=== PATIENT | female | born 1955 | race Caucasian/White ===

== ENCOUNTER 2018-09-12 16:19 | Inpatient (IN) | payer MEDICAID, SELFPAY ==
[2018-09-12] VITALS (8 sets, daily range): BP systolic 136–160; BP diastolic 98–104; PULSE 82–101; RESP 17–20; TEMP 36.6–37.1; O2SAT 87–94; BMI 30.8; BMI 37.3
--- NOTE | 2018-09-12 16:25 | EKG12_ITS ---
Test Reason : SYNCOPE Blood Pressure : / mmHG Vent. Rate : 097 BPM Atrial Rate : 097 BPM P-R Int : 120 ms QRS Dur : 090 ms QT Int : 330 ms P-R-T Axes : 064 134 067 degrees QTc Int : 419 ms Poor data quality, interpretation may be adversely affected Sinus rhythm with Premature atrial complexes Right axis deviation Low voltage QRS RSR' or QR pattern in V1 suggests right ventricular conduction delay Abnormal ECG Confirmed by DENA CHAPARRO, VANESSA ([id number]), content editor MANINDER RAMIREZ ([id number]) on 09/14/2018 4:22:44 PM Referred By: ARCHANA Confirmed By:VANESSA FERNANDES MD
--- NOTE | 2018-09-12 16:28 | ED.DCSUM_ITS ---
- ER Visit Summary Date of Service: 09/12/18 Chief Complaint: Fall, hypoxia History of Present Illness: The patient is a 63 F presents to the emergency department by squad after a fall. Patient states that she was outside. She thinks that she is going to get her mail. She tripped in wet grass and fell. She states that she was outside for about 15 minutes. She does not think that she lost consciousness. She did not strike her head. She does admit that she is been mildly short of breath for the past few days. She had scant cough. She denies any fevers or chills. She denies any history of lung disease. The patient does have a history of schizophrenia and is on long-acting injectable Haldol. She denies any hallucinations or delusions. She has never been on oxygen before. On squad arrival, she was 84% on room air. Physical Examination: Vital signs reviewed General: Well-nourished, well-developed Head: Normocephalic, atraumatic Eyes: Pupils equal and reactive, extraocular muscles intact Neck, supple, no lymphadenopathy Heart: Regular rate and rhythm Respiratory: No distress, diminished air movement in all lung estrada Abdomen: Soft, nontender, nondistended, no peritoneal signs Back: Nontender Extremities: Nontender, no edema, no cords Skin: Normal color no rash Neuro: Alert and oriented, no focal or lateralizing deficits Test Results: [] Emergency Department Course and Treatment: The patient presents with hypoxia. Her fall did seem to be mechanical, but the patient has a significant oxygen requirement. Metabolic workup was pursued. Her EKG did not show acute ischemia. Her chest x-ray was unremarkable. The patient continued to require 4 L of supplemental oxygen. She was given steroids and breathing treatments. She had improvement of aeration but continued to have oxygen dependence. At this time, I do feel that she can require admission for COPD exacerbation. She does have an indeterminate troponin, but I do feel that this is more likely from global hypoxia rather than acute coronary syndrome. Patient was discussed with the hospitalist and will be admitted. Treatment Plan: [] Disposition: Admission Impression: 1. COPD exacerbation 2. Hypoxia This note was generated with [employer] software. It may contain incorrect words, spelling, and punctuation that were not noted in review of the chart prior to signing ED Disposition - Plan for ED Patient: Chief Complaint: Fall
--- NOTE | 2018-09-12 16:30 | RAD_ITS ---
STUDY: X-RAY CHEST REASON FOR EXAM: Female, 63 years old. Cough TECHNIQUE: Single AP portable view of the chest. COMPARISON: None. FINDINGS: There are a few scattered areas of minimal interstitial prominence. There is no demonstrated pleural abnormality. There is borderline cardiomegaly. Normal mediastinum and trip. Normal visualized pulmonary arteries. Normal visualized aortic arch and descending thoracic aorta. Normal visualized thoracic spine. Normal visualized ribs, clavicles, and shoulders. There is no demonstrated abnormality of the visualized soft tissue structures of the upper abdomen. RAD/Chest 1 View (Portable) IMPRESSION: No visible focal consolidation. Electronically Signed: Jennifer Merrill MD at 17:14 EST Tel , Service support ,
[2018-09-12] MEDS: Albuterol 2.5 MG/3 ML VIAL.NEB. INHALATION ×2 (16:44→16:45)
[2018-09-12] MEDS: Ipratropium/Albuterol Sulfate 3 ML AMPUL.NEB INHALATION ×2 (16:45→22:10)
[2018-09-12 17:44] LABS: Absolute Lymphocyte Count 1.87 X10^3/ul (0.83-4.51); Absolute Neutrophil Count 13.1 X10^3/uL (2.0-7.7); Basophil# 0.02 X10^3/uL; Basophil% 0.1 % (0-1); Eosinophil# 0.05 X10^3/uL; Eosinophils% 0.3 % (0-5); Hematocrit 48.7 % (37-47); Hemoglobin 15.8 g/dl (12.0-15.0); Lymphocyte # 1.87 X10^3/ul (4.0); Lymphocyte % 11.5 % (19-41); Mean Corp Hgb Conc 32.4 g/gl (32-36); Mean Corpuscular Hgb 31.7 pg (27.0-32.0); Mean Corpuscular Volume 97.8 fL (81-99); Mean Platelet Vol. 9.7 fl (6.2-12.0); Monocyte# 1.16 X10^3/uL; Monocyte% 7.1 % (0-10); Neutrophil # 13.12 X10^3/uL (2.7-7.7); Neutrophil % 80.6 % (47-70); POSITIVE COUNT NO; POSITIVE DIFFERENTIAL NO; POSITIVE MORPHOLOGY NO; Platelet Count 290 K/mm3 (150-450); RBC Distribution Width CV 16.3 % (11.6-14.6); RBC Distribution Width SD 57.8 fl (35.1-43.9); Red Blood Count 4.98 M/mm3 (4.2-5.4); White Blood Count 16.3 K/mm3 (4.4-11.0)
[2018-09-12 18:00] LABS: ALB/GLOB Ratio 0.8 RATIO (0.9-2.4); AST(SGOT) 13 U/L (15-37); Alanine Aminotransfer ALT/SGPT 16 U/L (13-56); Albumin, Serum 3.1 g/dL (3.2-5.0); Alkaline Phosphatase 81 U/L (45-117); Anion Gap 3 (5-15); BUN 13 mg/dL (7-18); BUN/Creat Ratio 15.9 RATIO (10-20); Calcium,Total 8.4 mg/dL (8.5-10.1); Chloride 95 mmol/L (98-107); Creatinine, Serum 0.82 mg/dL (0.55-1.02); EST Glomerular Filtration Rate 75 mL/min (>60); Est Glom Filt Rate - Afr Amer 91 mL/min (>60); Estimated Creatinine Clearance 75.94 ml/min; Glucose 104 mg/dL (74-106); Potassium 3.9 mmol/L (3.5-5.1); Protein, Total 7.1 g/dL (6.4-8.2); Sodium Level 134 mmol/L (136-145)
[2018-09-12] MEDS: MethylPREDNISolone 125 MG/2 ML Vial IV (18:01)
[2018-09-12 18:13] LABS: BNP,B-Type NATRIURETIC PEPTIDE 325.8 pg/mL (0-100)
--- NOTE | 2018-09-12 19:06 | PCM.HP.STD ---
Problem List (1) Schizophrenia Status: Chronic (2) Smoker Status: Chronic (3) COPD (chronic obstructive pulmonary disease) Status: Acute Qualifiers: COPD type: COPD with acute exacerbation Qualified Code(s): J44.1 - Chronic obstructive pulmonary disease with (acute) exacerbation (4) Obesity Status: Chronic History of Present Illness Date of Admission: 09/12/18 Chief Complaint: shortness of breath The patient is a 63 year old female with a significant past medical history of Schizophrenia and COPD who smokes 3PPD for many years presents to the ER with shortness of breath. This has been progressing for the past 3 days but became worse today. She called the squad after a fall at home. She denies loss of consciousness but thinks she slipped on wet grass outside. She denies trauma or head injury. Her schizophrenia is controlled with monthly injections of Haldol. She is not on home oxygen. Her initial pulse oxygen saturation was 84% on room air. She will be admitted for COPD exacerbation Past Medical History Past Medical History (Chronic Problems): Chronic Problems Schizophrenia (Chronic) Smoker (Chronic) Obesity (Chronic) Allergies No Known Allergies Allergy (Verified 09/12/18 18:01) Smoking Status: Current every day smoker - *Family History Maternal History Items: No pertinent history Review of Systems Constitutional: Denies: Chills, Fever, Weight Change HEENT: Denies: Head Aches, Sinus Congestion, Sinus Drainage Cardiovascular: Denies: Chest Pain, Palpitations Respiratory: Reports: Cough, Shortness of breath at rest, Shortness of breath upon exertion, Wheezing. Denies: Sputum production Gastrointestinal: Denies: Abdominal Pain, Nausea, Vomiting Genitourinary: Denies: Dysuria Musculoskeletal: Denies: Joint Pain, Joint Tenderness Skin: Denies: Rash, Wounds Neurological: Denies: Numbness, Tingling, Focal weakness Psychiatric: Denies: Anxiety, Depression, Homicidal Ideations, Suicidal Ideations Hematologic/ Lymphatic: Denies: Easy Bruising, Easy Bleeding VTE Information - Inpt Only VTE Present on Admission: No VTE Mechan Device Prophylaxis: None VTE Pharm Prophylaxis ordered?: Yes Patient Problems: Active and Suspected Problems COPD (chronic obstructive pulmonary disease) (Acute) - Physical Exam General: Alert, Oriented x3, Cooperative HEENT: Atraumatic, Normocephalic Neck: Supple Lungs: Diminished, Short of Breath, Wheezes Cardiovascular: Regular rate, Normal S1, Normal S2, No murmurs Abdomen: Bowel Sounds Present, Soft, Non Tender, Obese Extremities: No edema Skin: No rashes Musculoskeletal: No Tenderness to Palpation of Joints or Extremities Neurological: Neuro grossly intact Psych/Mental Status: Normal Affect, Appropriate Vital Signs Temp Pulse Resp BP Pulse Ox 97.8 F 94 18 160/104 H 93 09/12/18 16:20 09/12/18 16:26 09/12/18 16:26 09/12/18 16:26 09/12/18 16:26 Oxygen Flow Rate (L/min) 4 Oxygen Delivery Method Nasal Cannula Weight: 215 lb Body Mass Index (BMI) 30.8 Laboratory Tests Past 24 Hrs 09/12/18 09/12/18 09/12/18 17:30 17:30 17:30 WBC 16.3 H RBC 4.98 Hgb 15.8 H Hct 48.7 H MCV 97.8 MCH 31.7 MCHC 32.4 RDW 16.3 H RDW Differential 57.8 H Plt Count 290 MPV 9.7 Immature Gran % (Auto) 0.400 Neut % (Auto) 80.6 H Lymph % (Auto) 11.5 L [place] % (Auto) 7.1 Eos % (Auto) 0.3 Baso % (Auto) 0.1 Absolute Neuts (auto) 13.1 H Absolute Lymphs (auto) 1.87 Total Counted Not Reportable Sodium 134 L Potassium 3.9 Chloride 95 L Carbon Dioxide 36.0 H Anion Gap 3 L BUN 13 Creatinine 0.82 Estim Creat Clear Calc 75.94 Est GFR (MDRD) Af Amer 91 Est GFR (MDRD) Non-Af 75 BUN/Creatinine Ratio 15.9 Glucose 104 Calcium 8.4 L Total Bilirubin 0.50 AST 13 L ALT 16 Alkaline Phosphatase 81 Troponin I 0.067 H B-Natriuretic Peptide 325.8 H Total Protein 7.1 Albumin 3.1 L Globulin 4.0 Albumin/Globulin Ratio 0.8 L Assessment/Plan All Active Problems COPD (chronic obstructive pulmonary disease) (Acute) Chronic Problems Schizophrenia (Chronic) Smoker (Chronic) Obesity (Chronic) Plan - admit to PCU - solumedrol 40mg IV q8hrs - levaquin 500mg IV q day - duoneb INH q 4hrs - cycle cardiac markers and cont telemetry due to elevated troponin - LMWH for DVT prophylaxis - nicoderm patch - continue routine home medications Code Visit Inpatient E&M: 16819 Init Hosp L3
[2018-09-12] MEDS: levoFLOXacin IV 500 MG/100 ML BAG 100 MG IV (20:48)
[2018-09-12] MEDS: 0.9% NaCl Peripheral Flush Adult/Peds IV (22:33)
[2018-09-13] VITALS (20 sets, daily range): BP systolic 146–158; BP diastolic 42–105; PULSE 78–189; RESP 16–20; TEMP 36.6–37; O2SAT 92–96
[2018-09-13] MEDS: Ipratropium/Albuterol Sulfate 3 ML AMPUL.NEB INHALATION ×4 (02:30→14:51)
[2018-09-13] MEDS: 0.9% NaCl Peripheral Flush Adult/Peds IV ×4 (05:29→21:42)
[2018-09-13 07:19] LABS: Absolute Lymphocyte Count 0.64 X10^3/ul (0.83-4.51); Absolute Neutrophil Count 14.2 X10^3/uL (2.0-7.7); Basophil# 0.01 X10^3/uL; Basophil% 0.1 % (0-1); Hematocrit 46.9 % (37-47); Hemoglobin 15.2 g/dl (12.0-15.0); Lymphocyte # 0.64 X10^3/ul (4.0); Lymphocyte % 4.2 % (19-41); Mean Corp Hgb Conc 32.4 g/gl (32-36); Mean Corpuscular Hgb 31.5 pg (27.0-32.0); Mean Corpuscular Volume 97.3 fL (81-99); Mean Platelet Vol. 10.5 fl (6.2-12.0); Monocyte# 0.45 X10^3/uL; Monocyte% 2.9 % (0-10); Neutrophil # 14.24 X10^3/uL (2.7-7.7); Neutrophil % 92.5 % (47-70); Platelet Count 268 K/mm3 (150-450); RBC Distribution Width CV 15.9 % (11.6-14.6); RBC Distribution Width SD 55.8 fl (35.1-43.9); Red Blood Count 4.82 M/mm3 (4.2-5.4); White Blood Count 15.4 K/mm3 (4.4-11.0)
[2018-09-13 07:24] LABS: POSITIVE COUNT NO; POSITIVE DIFFERENTIAL NO; POSITIVE MORPHOLOGY NO
[2018-09-13 07:37] LABS: Anion Gap 6 (5-15); BUN 12 mg/dL (7-18); BUN/Creat Ratio 18.9 RATIO (10-20); Calcium,Total 8.5 mg/dL (8.5-10.1); Chloride 99 mmol/L (98-107); Creatinine, Serum 0.64 mg/dL (0.55-1.02); EST Glomerular Filtration Rate 100 mL/min (>60); Est Glom Filt Rate - Afr Amer 121 mL/min (>60); Estimated Creatinine Clearance 71.16 ml/min; Glucose 131 mg/dL (74-106); Potassium 4.1 mmol/L (3.5-5.1); Sodium Level 136 mmol/L (136-145)
[2018-09-13] MEDS: Enoxaparin 40 MG/0.4 ML Syringe SC (08:21)
[2018-09-13] MEDS: Aspirin E.C. 325 MG Tablet PO (08:21)
[2018-09-13] MEDS: levoFLOXacin IV 500 MG/100 ML BAG 100 MG IV (10:24)
--- NOTE | 2018-09-13 14:42 | PN_ITS ---
<Mable Brand - Last Filed: 09/13/18 14:42> Patient Problems: Active and Suspected Problems COPD (chronic obstructive pulmonary disease) (Acute) Subjective: Patient seen and examined. Harsh nonproductive cough. Notes improvement in shortness of breath. No other current complaints. - Physical Exam General: Alert, Oriented x3, Cooperative HEENT: Atraumatic, PERRLA, EOMI, Normocephalic Neck: Supple, No JVD, Negative Carotid Bruits Lungs: Diminished, Rhonchi, Wheezes Cardiovascular: Regular rate, Regular Rhythm, Normal S1, Normal S2, No murmurs Abdomen: Bowel Sounds Present, Soft, Non Tender, Non-Distended, Obese Extremities: No clubbing, No cyanosis, No edema, Capillary Refill Less than 3 Seconds Skin: No rashes, No breakdown Musculoskeletal: No Tenderness to Palpation of Joints or Extremities Neurological: Cranial nerves II-XII grossly intact, Neuro grossly intact Psych/Mental Status: Normal Affect, Appropriate Vital Signs Temp Pulse Resp BP Pulse Ox 98.6 F 87 20 H 149/93 H 96 09/13/18 08:17 09/13/18 10:58 09/13/18 13:59 09/13/18 08:17 09/13/18 08:17 Oxygen Flow Rate (L/min) 3 Oxygen Delivery Method Nasal Cannula Weight: 203 lb 14.841 oz Body Mass Index (BMI) 37.3 Intake and Output for Last 24 Hours 09/11/18 09/12/18 09/13/18 23:59 23:59 23:59 Intake Total 1191 / 1191 Balance 1191 / 1191 Laboratory Tests Past 24 Hrs 09/12/18 09/12/18 09/12/18 17:30 17:30 17:30 WBC 16.3 H RBC 4.98 Hgb 15.8 H Hct 48.7 H MCV 97.8 MCH 31.7 MCHC 32.4 RDW 16.3 H RDW Differential 57.8 H Plt Count 290 MPV 9.7 Immature Gran % (Auto) 0.400 Neut % (Auto) 80.6 H Lymph % (Auto) 11.5 L [place] % (Auto) 7.1 Eos % (Auto) 0.3 Baso % (Auto) 0.1 Absolute Neuts (auto) 13.1 H Absolute Lymphs (auto) 1.87 Total Counted Not Reportable Sodium 134 L Potassium 3.9 Chloride 95 L Carbon Dioxide 36.0 H Anion Gap 3 L BUN 13 Creatinine 0.82 Estim Creat Clear Calc 75.94 Est GFR (MDRD) Af Amer 91 Est GFR (MDRD) Non-Af 75 BUN/Creatinine Ratio 15.9 Glucose 104 Calcium 8.4 L Total Bilirubin 0.50 AST 13 L ALT 16 Alkaline Phosphatase 81 Troponin I 0.067 H B-Natriuretic Peptide 325.8 H Total Protein 7.1 Albumin 3.1 L Globulin 4.0 Albumin/Globulin Ratio 0.8 L 09/12/18 09/13/18 09/13/18 21:22 06:00 06:00 WBC 15.4 H RBC 4.82 Hgb 15.2 H Hct 46.9 MCV 97.3 MCH 31.5 MCHC 32.4 RDW 15.9 H RDW Differential 55.8 H Plt Count 268 MPV 10.5 Immature Gran % (Auto) 0.300 Neut % (Auto) 92.5 H Lymph % (Auto) 4.2 L [place] % (Auto) 2.9 Eos % (Auto) 0.0 Baso % (Auto) 0.1 Absolute Neuts (auto) 14.2 H Absolute Lymphs (auto) 0.64 L Total Counted Not Reportable Sodium 136 Potassium 4.1 Chloride 99 Carbon Dioxide 31.0 Anion Gap 6 BUN 12 Creatinine 0.64 Estim Creat Clear Calc 71.16 Est GFR (MDRD) Af Amer 121 Est GFR (MDRD) Non-Af 100 BUN/Creatinine Ratio 18.9 Glucose 131 H Calcium 8.5 Total Bilirubin AST ALT Alkaline Phosphatase Troponin I 0.044 B-Natriuretic Peptide Total Protein Albumin Globulin Albumin/Globulin Ratio 09/13/18 06:00 WBC RBC Hgb Hct MCV MCH MCHC RDW RDW Differential Plt Count MPV Immature Gran % (Auto) Neut % (Auto) Lymph % (Auto) [place] % (Auto) Eos % (Auto) Baso % (Auto) Absolute Neuts (auto) Absolute Lymphs (auto) Total Counted Sodium Potassium Chloride Carbon Dioxide Anion Gap BUN Creatinine Estim Creat Clear Calc Est GFR (MDRD) Af Amer Est GFR (MDRD) Non-Af BUN/Creatinine Ratio Glucose Calcium Total Bilirubin AST ALT Alkaline Phosphatase Troponin I 0.024 B-Natriuretic Peptide Total Protein Albumin Globulin Albumin/Globulin Ratio Medical Necessity - Tobacco Use Smoking Status: Current every day smoker Assessment/Plan All Active Problems COPD (chronic obstructive pulmonary disease) (Acute) 1. Acute COPD exacerbation with associated acute hypoxia-continue supplemental oxygen to maintain O2 sat above 90%. Continue IV Solu-Medrol. Albuterol and DuoNeb aerosols. Levaquin empirically. Chest x-ray on admission with no focal consolidation. 2. Indeterminate troponin/elevated BNP-patient denies chest pain. Suspect secondary to demand ischemia as a result of #1. Troponins did not trend. EKG without evidence of ST-T changes. BNP 325. No evidence of CHF. Feel this is related to acute respiratory insufficiency. 3. Tobacco dependence-current pack+ per day smoker. Offered nicotine replacement patch, patient declined. 4. Schizophrenia-continue home regimen. 5. Obesity-encouraged diet lifestyle modifications. 6. Hyperlipidemia-continue statin. DVT prophylaxis- Lovenox This patient was seen by REY Collazo under the supervision of Dr. Bauman. <Alex Bauman F - Last Filed: 09/13/18 15:36> - Physical Exam Vital Signs Temp Pulse Resp BP Pulse Ox 98.4 F 86 18 157/84 H 94 09/13/18 15:25 09/13/18 15:25 09/13/18 15:25 09/13/18 15:25 09/13/18 15:25 Oxygen Flow Rate (L/min) 3 Oxygen Delivery Method Nasal Cannula Weight: 203 lb 14.841 oz Body Mass Index (BMI) 37.3 Intake and Output for Last 24 Hours 09/11/18 09/12/18 09/13/18 23:59 23:59 23:59 Intake Total 1191 / 1191 Balance 1191 / 1191 Laboratory Tests Past 24 Hrs 09/12/18 09/12/18 09/12/18 17:30 17:30 17:30 WBC 16.3 H RBC 4.98 Hgb 15.8 H Hct 48.7 H MCV 97.8 MCH 31.7 MCHC 32.4 RDW 16.3 H RDW Differential 57.8 H Plt Count 290 MPV 9.7 Immature Gran % (Auto) 0.400 Neut % (Auto) 80.6 H Lymph % (Auto) 11.5 L [place] % (Auto) 7.1 Eos % (Auto) 0.3 Baso % (Auto) 0.1 Absolute Neuts (auto) 13.1 H Absolute Lymphs (auto) 1.87 Total Counted Not Reportable Sodium 134 L Potassium 3.9 Chloride 95 L Carbon Dioxide 36.0 H Anion Gap 3 L BUN 13 Creatinine 0.82 Estim Creat Clear Calc 75.94 Est GFR (MDRD) Af Amer 91 Est GFR (MDRD) Non-Af 75 BUN/Creatinine Ratio 15.9 Glucose 104 Calcium 8.4 L Total Bilirubin 0.50 AST 13 L ALT 16 Alkaline Phosphatase 81 Troponin I 0.067 H B-Natriuretic Peptide 325.8 H Total Protein 7.1 Albumin 3.1 L Globulin 4.0 Albumin/Globulin Ratio 0.8 L 09/12/18 09/13/18 09/13/18 21:22 06:00 06:00 WBC 15.4 H RBC 4.82 Hgb 15.2 H Hct 46.9 MCV 97.3 MCH 31.5 MCHC 32.4 RDW 15.9 H RDW Differential 55.8 H Plt Count 268 MPV 10.5 Immature Gran % (Auto) 0.300 Neut % (Auto) 92.5 H Lymph % (Auto) 4.2 L [place] % (Auto) 2.9 Eos % (Auto) 0.0 Baso % (Auto) 0.1 Absolute Neuts (auto) 14.2 H Absolute Lymphs (auto) 0.64 L Total Counted Not Reportable Sodium 136 Potassium 4.1 Chloride 99 Carbon Dioxide 31.0 Anion Gap 6 BUN 12 Creatinine 0.64 Estim Creat Clear Calc 71.16 Est GFR (MDRD) Af Amer 121 Est GFR (MDRD) Non-Af 100 BUN/Creatinine Ratio 18.9 Glucose 131 H Calcium 8.5 Total Bilirubin AST ALT Alkaline Phosphatase Troponin I 0.044 B-Natriuretic Peptide Total Protein Albumin Globulin Albumin/Globulin Ratio 09/13/18 06:00 WBC RBC Hgb Hct MCV MCH MCHC RDW RDW Differential Plt Count MPV Immature Gran % (Auto) Neut % (Auto) Lymph % (Auto) [place] % (Auto) Eos % (Auto) Baso % (Auto) Absolute Neuts (auto) Absolute Lymphs (auto) Total Counted Sodium Potassium Chloride Carbon Dioxide Anion Gap BUN Creatinine Estim Creat Clear Calc Est GFR (MDRD) Af Amer Est GFR (MDRD) Non-Af BUN/Creatinine Ratio Glucose Calcium Total Bilirubin AST ALT Alkaline Phosphatase Troponin I 0.024 B-Natriuretic Peptide Total Protein Albumin Globulin Albumin/Globulin Ratio Code Visit Addendum: Dr. Bauman I personally examined the patient and reviewed the chart. I agree with the above. Patient is a 63-year-old female with past medical history of schizophrenia, COPD who smokes 3 packs/day for many years and presented to the ER with shortness of breath. She is felt to be having an acute COPD exacerbation and was therefore started on Solu-Medrol 40 mg IV every 8 as well as Levaquin 500 daily and inhalers. She continues to be short of breath and is currently on 3 L nasal cannula. Inpatient E&M: 23511 Subs Hosp L2
--- NOTE | 2018-09-13 15:19 | CASEMGMT ---
KASSIE CORCORAN INITIAL ASSESSMENT D/C PLAN: Home Face to Face with patient for initial transition planning/care coordination assessment. KASSIE CORCORAN introduced self and role at [facility]. Pt resting in bed, awake/alert and agreeable to assessment. Care providers, pharmacy, and demographics verified. PCP: Elpidio Coughlin Specialists: Denies Preferred Pharmacy: [facility] [place] Insurance: [employer]. Does not have a Conservation Worker. Pt made aware she could ask for Conservation Worker through [employer] and KASSIE CORCORAN offered to make the call to [facility] so she could talk with them. Pt stated, I'll keep that in mind. I don't want to do that today. Prescription Benefit: Yes Living Will/HPOA: Does not have either. Given AD info packet. Pt states that she would like her daughter to make medical decisions for her if she was not able to. Referral made to Pura TANNER. SAB[place]OK: Has a daughter who lives in [place] and a son. Living Arrangements: Lives with her boyfriend, Canelo in a one-story home. 2 steps to enter. Canelo assists with medication mgmnt. Pt does her own personal care/ADL's, meals, and household mgmt tasks. States she and Canelo do finances together. Pt states she receives Disability benefits. Transportation: Pt and Canelo DME: States she thinks she has rails/grab bars in the home and has a hand-held shower. Denies using any other DME. walks independently. Denies DME needs. does not wear home O2 and states she does not have a nebulizer. May need Home Oxygen qualification testing completed prior to discharge. HHC/SNF: has never used HHC services or been to a SNF. States does not have either. Pt wishes to return home, denies needs, and states does not want HHC. Pt states she still smokes about 3 PPD and is not interested in quitting. States she will think about talking to someone but does not wish to today, stating, I like to smoke. Denies drinking ETOH or illicit drug use. CM to follow for any further discharge planning needs that may arise. Stone DORSEY RN, CM
--- NOTE | 2018-09-13 19:10 | EKG12_ITS ---
Test Reason : SVT Blood Pressure : / mmHG Vent. Rate : 089 BPM Atrial Rate : 089 BPM P-R Int : 102 ms QRS Dur : 092 ms QT Int : 304 ms P-R-T Axes : 051 093 036 degrees QTc Int : 369 ms Sinus rhythm with short IN Rightward axis Incomplete right bundle branch block Borderline ECG When compared with ECG of 13-SEP-2018 19:11, MANUAL COMPARISON REQUIRED, DATA IS UNCONFIRMED Confirmed by JORDAN CHAPARRO, TITO ([id number]), editorial specialist MANINDER RAMIREZ ([id number]) on 09/16/2018 2:05:43 PM Referred By: DR VALLEJO Confirmed By:TITO ORTEGA MD
[2018-09-13] MEDS: Adenosine 6 MG/2 ML Syringe IV (19:20)
[2018-09-13] MEDS: Adenosine 6 MG/2 ML Syringe 12 MG IV (19:25)
--- NOTE | 2018-09-13 19:31 | PCM.PN.BLA ---
Progress Note Patient in svt with HR of 180S to 190s. Adenosine first 6mg did not respond. Converted to sinus rhythm with 12mg IVP. cardiology consult.
--- NOTE | 2018-09-13 19:35 | EKG12_ITS ---
Test Reason : SVT Blood Pressure : / mmHG Vent. Rate : 190 BPM Atrial Rate : 182 BPM P-R Int : 000 ms QRS Dur : 080 ms QT Int : 214 ms P-R-T Axes : 000 081 235 degrees QTc Int : 380 ms Supraventricular tachycardia Nonspecific ST and T wave abnormality Abnormal ECG When compared with ECG of 12-SEP-2018 16:41, MANUAL COMPARISON REQUIRED, DATA IS UNCONFIRMED Confirmed by JORDAN CHAPARRO, TITO ([id number]), editor magazine MANINDER RAMIREZ ([id number]) on 09/16/2018 2:06:02 PM Referred By: DR MATHEW Confirmed By:TITO ORTEGA MD
--- NOTE | 2018-09-13 19:44 | NURSING ---
AROUND 1900 PT WENT INTO SVT ON MONITOR, PT WAS UP TO BATHROOM WHEN THIS ALL STARTED, WAS ALSO ASYMPTOMATIC. THIS RN WENT IN ROOM AND ATTEMPTED TO HAVE PT COUGH AND BARE DOWN, THIS WAS UNSUCCESSFUL. AN EKG WAS OBTAINED WHICH CONFIRMED SVT. DR. REYNA WAS PAGED AND CAME TO FLOOR. 6 MG IV ADENOSINE WAS ADMINISTERED WITH NO SUCCESS. 12 MG IV ADENOSINE WAS THEN ADMINISTERED WITH A POSITIVE OUTCOME. HR RETURNED TO 89 AND AN EKG WAS OBTAINED. VSS. CARDIOLOGY CONSULT WAS PLACED FOR SVT.
[2018-09-13] MEDS: Atorvastatin Calcium 10 MG Tablet PO (21:42)
[2018-09-13] MEDS: Nystatin Powder 15gm Bottle 1 APPLIC TOPICAL (21:42)
[2018-09-14] VITALS (16 sets, daily range): BP systolic 141–165; BP diastolic 78–112; PULSE 63–83; RESP 18–22; TEMP 36.3–37.2; O2SAT 94–97
[2018-09-14] MEDS: Ipratropium/Albuterol Sulfate 3 ML AMPUL.NEB INHALATION ×4 (03:32→19:43)
[2018-09-14] MEDS: 0.9% NaCl Peripheral Flush Adult/Peds IV ×4 (07:08→21:00)
[2018-09-14] MEDS: Acetaminophen 325 MG Tablet 650 MG PO (07:08)
[2018-09-14 07:11] LABS: Hematocrit 46.8 % (37-47); Hemoglobin 15.7 g/dl (12.0-15.0); Mean Corp Hgb Conc 33.5 g/gl (32-36); Mean Corpuscular Volume 95.5 fL (81-99); Mean Platelet Vol. 10.9 fl (6.2-12.0); Platelet Count 290 K/mm3 (150-450); RBC Distribution Width CV 15.8 % (11.6-14.6); RBC Distribution Width SD 54.2 fl (35.1-43.9); White Blood Count 15.9 K/mm3 (4.4-11.0)
--- NOTE | 2018-09-14 07:13 | ECHOD_ITS ---
Reason For Study: Arrhythmia Procedure This was a 2D Doppler, Color Flow transthoracic echocardiogram. Did not use Definity due to increased PAP. The study was technically difficult. Exam performed portable in patient room. Left Ventricle Normal LV size. Left ventricular systolic function is normal. The estimated ejection fraction is 60 %. Diastolic function is indeterminate. No regional wall motion abnormalities noted. Right Ventricle Normal RV size. Normal systolic function. Atria Normal left atrium. Normal right atrium. No doppler evidence for ASD. Mitral Valve There is no mitral annular calcification. Normal mitral valve. Mild (1+) mitral valve insufficiency. Tricuspid Valve Normal tricuspid valve. Mild to moderate (1-2+) tricuspid valve insufficiency. Right ventricular systolic pressure estimated to be 58 mmHg. Aortic Valve Trisinus/trileaflet aortic valve. Mild focal aortic valve thickening. Pulmonic Valve The pulmonic valve is not well visualized. Mild (1+) pulmonic valve insufficiency. Great Vessels Normal sized aortic root. Pericardium/Pleural Trivial pericardial effusion. There are no echocardiographic indications of cardiac tamponade. MMode/2D Measurements & Calculations LVIDd: 5.1 cm IVSd: 1.2 cm Ao root diam: 3.2 cm LVIDs: 3.6 cm LVPWd: 0.96 cm RVDd: 4.2 cm FS: 28.9 % LAV(MOD-bp): 37.9 ml LA A4 area: 13.8 cm2 LA dimension(2D): 4.3 cm LAV(MOD-bp) Indexed: 19.7 ml/m2 LAV(MOD-sp2): 45.6 ml LAV(MOD-sp4): 29.9 ml RA A4 area: 18.4 cm2 Doppler Measurements & Calculations MV E max curtis: 111.7 cm/sec Lat Peak E' Curtis: 7.2 cm/sec Med Peak E' Curtis: 7.7 cm/sec MV A max curtis: 92.4 cm/sec E/E' lat: 15.5 E/E' med: 14.4 MV E/A: 1.2 Ao V2 max: 168.2 cm/sec LV V1 max: 113.8 cm/sec PA V2 max: 86.8 cm/sec Ao max P.3 mmHg LV V1 max P.2 mmHg Ao V2 mean: 114.4 cm/sec Ao mean P.8 mmHg Ao V2 VTI: 34.2 cm TR max curtis: 325.9 cm/sec TR max P.5 mmHg Interpretation Summary The study was technically difficult. Left ventricular systolic function is normal. The estimated ejection fraction is 60 %. Mild (1+) mitral valve insufficiency. Mild to moderate (1-2+) tricuspid valve insufficiency. Mild focal aortic valve thickening. Mild (1+) pulmonic valve insufficiency. Trivial pericardial effusion. There are no echocardiographic indications of cardiac tamponade. Right ventricular systolic pressure estimated to be 58 mmHg c/w pulmonary hypertension. Diastolic function is indeterminate. Ordering Physician: Tank Tolbert Referring Physician: Elpidio Coughlin Performed By: Sandhya Guadalupe, LAZARO, RVT
[2018-09-14 07:16] LABS: Scan Indicated on CBC? Y/N NO
[2018-09-14 07:17] LABS: Anion Gap 6 (5-15); BUN 15 mg/dL (7-18); Calcium,Total 8.8 mg/dL (8.5-10.1); Chloride 98 mmol/L (98-107); Creatinine, Serum 0.84 mg/dL (0.55-1.02); EST Glomerular Filtration Rate 73 mL/min (>60); Est Glom Filt Rate - Afr Amer 89 mL/min (>60); Estimated Creatinine Clearance 54.22 ml/min; Glucose 135 mg/dL (74-106); Potassium 4.1 mmol/L (3.5-5.1); Sodium Level 134 mmol/L (136-145)
--- NOTE | 2018-09-14 08:52 | CON.PCM_ITS ---
Problem List (1) SVT (supraventricular tachycardia) Status: Acute (2) Abnormal cardiac enzyme level Status: Acute (3) COPD (chronic obstructive pulmonary disease) Status: Acute Qualifiers: COPD type: COPD with acute exacerbation Qualified Code(s): J44.1 - Chronic obstructive pulmonary disease with (acute) exacerbation (4) Schizophrenia Status: Chronic (5) Obesity Status: Chronic Reason for Consult Date of Consultation: 09/14/18 History of Present Illness: The patient is a 63 year old white female with a past medical history which is apparently included COPD and schizophrenia who is being evaluated for COPD exacerbation and is subsequently been referred for further evaluation of PSVT requiring medical management with IV adenosine. The patient does not recall any cardiovascular history nor undergoing cardiovascular evaluation in the past. She states that she has been complaining of shortness of breath and a nonproductive cough. She is being evaluated for an underlying COPD exacerbation. She has been treated medically including IV corticosteroids. During her initial evaluation she did have an indeterminate troponin I level which decreased. She had no acute ECG changes reported. According to the medical records it was felt this was secondary to her COPD exacerbation. She did not have additional cardiovascular evaluation. Yesterday evening she noted palpitations. She was found to have an underlying supraventricular tachycardia. She was treated with IV adenosine 6 mg x1 with no response. She was treated with IV adenosine 12 mg x1 with subsequent conversion to sinus rhythm. She did have a follow-up ECG. At that time she was noted to be back in sinus rhythm with a borderline short SD interval with a rightward axis and an incomplete right bundle branch block pattern. Compared to her baseline ECG there appeared to be similar type changes. She has denied chest discomfort. She complains of her chronic shortness of breath and dyspnea. She complains of her chronic cough. She is denied any ongoing near syncope or syncope. She states she has been a 3 pack/day smoker for many years. She states she stopped smoking 1 week ago. [] Past Medical History Allergies/Adverse Reactions: Allergies No Known Allergies Allergy (Verified 09/12/18 20:23) Home Medications: Ambulatory Orders Medication Instructions Recorded Atorvastatin Calcium [Lipitor] 10 mg PO DAILY 09/12/18 Haloperidol 2 mg PO BID 09/12/18 Lorazepam [Ativan] 0.5 mg PO BID 09/12/18 Mometasone/Formoterol [Dulera 100 2 puff INHALATION BID 09/12/18 Mcg/5 Mcg Inhaler] Perphenazine 8 mg PO BID 09/12/18 Past Medical History (Chronic Problems): Chronic Problems Schizophrenia (Chronic) Smoker (Chronic) Obesity (Chronic) - *Family History Maternal History Items: No pertinent history Smoking Status: Current every day smoker Alcohol: None Drugs: None Review of Systems - Review of Systems General: Reports: Fever Cardiovascular: Reports: Shortness of Breath, Palpitations. Denies: Chest Discomfort, Orthopnea, PND, Peripheral Edema, Lightheadedness, Dizziness, Near Syncope, Syncope Respiratory: Reports: Non Productive Cough, Shortness of Breath. Denies: Cough, Sputum Production, Hemoptysis Gastrointestinal: Denies: Hematemesis, Hematochezia, Melena Genitourinary: Denies: Dysuria, Hematuria Skin: Denies: Rash Subjectve: This is a 63-year-old white female who appears to be resting comfortably at the moment in no acute distress. Objective: Vital Signs Temp Pulse Resp BP Pulse Ox 97.8 F 83 20 H 141/78 H 95 09/14/18 03:25 09/14/18 07:27 09/14/18 07:27 09/14/18 03:25 09/14/18 07:27 Oxygen Flow Rate (L/min) 2 Oxygen Delivery Method Nasal Cannula Weight: 203 lb 14.841 oz Body Mass Index (BMI) 37.3 Intake and Output for Last 24 Hours 09/12/18 09/13/18 09/14/18 23:59 23:59 23:59 Intake Total 1890 / 1890 240 / 240 Balance 1890 240 / 240 General: Awake, Alert, Oriented x 3, Cooperative, No Acute Distress HEENT: Atraumatic, Normocephalic, PERRL, EOMI, Sclera Non Icteric Oral: Moist Mucosa Neck: Supple, Good ROM, No JVD Lungs: Rhonchi Cardiovascular: Regular Rhythm, Normal S1, Normal S2 Vascular: No Carotid Bruits Abdomen: Bowel Sounds Present, Soft, Non Tender, Obese Extremities: No Cyanosis, No Clubbing, No edema 09/14/18 06:35: WBC 15.9 H, RBC 4.90, Hgb 15.7 H, Hct 46.8, MCV 95.5, MCH 32.0, MCHC 33.5, RDW 15.8 H, RDW Differential 54.2 H, Plt Count 290, MPV 10.9 09/14/18 06:35: Sodium 134 L, Potassium 4.1, Chloride 98, Carbon Dioxide 30.0, Anion Gap 6, BUN 15, Creatinine 0.84, Est GFR (MDRD) Af Amer 89, Est GFR (MDRD) Non-Af 73, BUN/Creatinine Ratio 18.0, Glucose 135 H, Calcium 8.8 Rhythm: Sinus rhythm EKG: As noted above ECHO: Pending CXR: Preliminary evaluation: No acute cardiopulmonary disease process: Please see official report Assessment/Plan 1. Supraventricular tachycardia The patient has demonstrated evidence of an underlying paroxysmal supraventricular tachycardia. Based upon the findings and her response to IV adenosine therapy it appears this is related to an underlying reentry mechanism tachycardia. This may be brought out by her underlying COPD exacerbation, etc. It is unclear whether she has had episodes of this in the past that have been undiagnosed. At the present time she will continue to be monitored. She will undergo further evaluation of her cardiac anatomy with a transthoracic echocardiogram. In the interim she will be placed on medical management with beta-aarti therapy. Hopefully this will not interfere with her underlying COPD process. Over time she may need to be considered for EP consultation for possible EPS/RFA. 2. Abnormal cardiac enzymes The patient does have a history of indeterminate troponin I levels. Again this may be secondary to her underlying COPD process and supply demand mismatch. However she has not been evaluated from a cardiovascular status for any other cardiac issues. In light of her SVT she will have at minimum an echocardiogram performed to evaluate her left ventricular wall motion and systolic function. She may eventually need, as her pulmonary process improves, further evaluation either noninvasively or invasively of her coronary anatomy and physiology. In the meantime she will continue medical management such as aspirin and beta- aarti therapy and other medications as needed. 3. COPD The patient will continue evaluation care for COPD exacerbation by internal medicine. 4. Schizophrenia The patient states she has been diagnosed with schizophrenia. She does not recall who has cared for or how she has been treated. 5. Obesity The patient has been counseled on the importance of dietary therapy, activity, etc. to try and bring her weight under better control. Comment: The above was discussed with the patient. This note was generated using a voice recognition system and there may be i ncorrect words, spelling or punctuation that were not noted when reviewing the office note prior to saving.
[2018-09-14 09:26] LABS: Cholesterol 144 mg/dL (200); High Density Lipoprotein 35 mg/dL; Triglycerides 135 mg/dL; Very Low Density Lipoprotein 27 mg/dL (5-40)
--- NOTE | 2018-09-14 09:29 | CASEMGMT ---
SW spoke with patient about advance directives. SW asked her if she would like to go over the documents and complete them and she did not. SW explained SW will leave the documents with her and if she changes her mind to let SW know. SW asked patient if she is active with [facility]. She said she is not. SW asked who prescribes her medications. She said her regular doctor prescribes her meds and then her Psychiatrist prescribes her mental health meds. SW asked if she was involved with any other services in the community and she said she is not. She said she is managing well at home. SW asked if she has any kids. She said she has a daughter who lives in [place]. She also has a son who lives with her and her significant other. Patient denied any further needs. Pura ANGUIANO MSW
[2018-09-14] MEDS: levoFLOXacin IV 500 MG/100 ML BAG 100 MG IV (09:32)
[2018-09-14] MEDS: Nystatin Powder 15gm Bottle 1 APPLIC TOPICAL ×2 (09:33→20:59)
[2018-09-14] MEDS: Metoprolol Tartrate 25 MG Tablet PO ×2 (09:33→20:59)
[2018-09-14] MEDS: Enoxaparin 40 MG/0.4 ML Syringe SC (09:36)
[2018-09-14] MEDS: Aspirin E.C. 325 MG Tablet PO (09:36)
--- NOTE | 2018-09-14 10:05 | CASEMGMT ---
Addendum entered by Wilder Balderas 09/14/18 14:49: Discussion with pt again about retail area manager through [facility]. Explained the benefits of having a retail area manager and how they can assist pt with transportation and doctor appts. Pt declines at this time, stating, No, I don't think I want to do that today. Pt informed that if she decides she would like to have a Second Shift Supervisor in the future, that she should contact [facility] to let them know. Original Note: KASSIE CORCORAN NOTE: To room to talk with pt. Discussed [facility] services with pt and explained their services. Pt agreeable with [facility] services. Pt states she has no preference of [facility] agency. Call placed to [facility] @ [phone]. Spoke with Aiyana. She stated they do have Social Work Services and do service the [place] area. She states they would need 48 hrs to get prior auth from [facility]. Awaiting call back from [facility] for acceptance. Stone DORSEY RN, CM
--- NOTE | 2018-09-14 12:34 | PCM.PROGNOTE ---
<Mable Brand - Last Filed: 09/14/18 12:38> Patient Problems: Active and Suspected Problems COPD (chronic obstructive pulmonary disease) (Acute) SVT (supraventricular tachycardia) (Acute) Abnormal cardiac enzyme level (Acute) Subjective: Patient seen and examined. Shortness of breath improved. Continues to have wet cough. Patient noted to have paroxysmal SVT overnight. Patient notes she was asymptomatic. - Physical Exam General: Alert, Oriented x3, Cooperative HEENT: Atraumatic, PERRLA, EOMI, Normocephalic Neck: Supple, No JVD, Negative Carotid Bruits Lungs: Diminished, Rhonchi, Wheezes Cardiovascular: Regular rate, Regular Rhythm, Normal S1, Normal S2, No murmurs Abdomen: Bowel Sounds Present, Soft, Non Tender, Non-Distended Extremities: No clubbing, No cyanosis, No edema, Capillary Refill Less than 3 Seconds Skin: No rashes, No breakdown Musculoskeletal: No Tenderness to Palpation of Joints or Extremities Neurological: Cranial nerves II-XII grossly intact, Neuro grossly intact Psych/Mental Status: Normal Affect, Appropriate Vital Signs Temp Pulse Resp BP Pulse Ox 98.8 F 66 20 H 165/104 H 94 09/14/18 09:25 09/14/18 11:14 09/14/18 09:25 09/14/18 09:25 09/14/18 09:25 Oxygen Flow Rate (L/min) 2 Oxygen Delivery Method Nasal Cannula Weight: 203 lb 14.841 oz Body Mass Index (BMI) 37.3 Intake and Output for Last 24 Hours 09/12/18 09/13/18 09/14/18 23:59 23:59 23:59 Intake Total 189 / 189 1016 / 1016 Balance 189 / 189 1016 / 1016 Laboratory Tests Past 24 Hrs 09/14/18 09/14/18 09/14/18 06:35 06:35 06:35 WBC 15.9 H RBC 4.90 Hgb 15.7 H Hct 46.8 MCV 95.5 MCH 32.0 MCHC 33.5 RDW 15.8 H RDW Differential 54.2 H Plt Count 290 MPV 10.9 Sodium 134 L Potassium 4.1 Chloride 98 Carbon Dioxide 30.0 Anion Gap 6 BUN 15 Creatinine 0.84 Estim Creat Clear Calc 54.22 Est GFR (MDRD) Af Amer 89 Est GFR (MDRD) Non-Af 73 BUN/Creatinine Ratio 18.0 Glucose 135 H Calcium 8.8 Triglycerides 135 Cholesterol 144 LDL Cholesterol 82 VLDL Cholesterol 27 HDL Cholesterol 35 L Medical Necessity - Tobacco Use Smoking Status: Current every day smoker Assessment/Plan All Active Problems COPD (chronic obstructive pulmonary disease) (Acute) SVT (supraventricular tachycardia) (Acute) Abnormal cardiac enzyme level (Acute) 1. Acute COPD exacerbation with associated acute hypoxia-continue supplemental oxygen to maintain O2 sat above 90%. Continue IV Solu-Medrol. Albuterol and DuoNeb aerosols. Levaquin empirically. Chest x-ray on admission with no focal consolidation. 2. Indeterminate troponin/elevated BNP-patient denies chest pain. Suspect secondary to demand ischemia as a result of #1. Troponins did not trend. EKG without evidence of ST-T changes. BNP 325. No evidence of CHF. Feel this is related to acute respiratory insufficiency. Echocardiogram pending. Cardiology following. Possible further cardiac evaluation with improvement in COPD exacerbation. 3. Paroxysmal SVT-IV adenosine x2. Cardiology consulted. Echocardiogram pending. 4. Tobacco dependence-current pack+ per day smoker. Offered nicotine replacement patch, patient declined. 5. Schizophrenia-continue home regimen. 6. Obesity-encouraged diet lifestyle modifications. 7. Hyperlipidemia-continue statin. DVT prophylaxis- Lovenox This patient was seen by REY Collazo under the supervision of Dr. Bauman. <Alex Bauman F - Last Filed: 09/14/18 16:12> - Physical Exam Vital Signs Temp Pulse Resp BP Pulse Ox 98.9 F 68 20 H 148/112 H 94 09/14/18 15:25 09/14/18 15:25 09/14/18 15:25 09/14/18 15:25 09/14/18 15:25 Oxygen Flow Rate (L/min) 2 Oxygen Delivery Method Nasal Cannula Weight: 203 lb 14.841 oz Body Mass Index (BMI) 37.3 Intake and Output for Last 24 Hours 09/12/18 09/13/18 09/14/18 23:59 23:59 23:59 Intake Total 1890 / 189 1016 / 1016 Balance 1890 1016 / 1016 Laboratory Tests Past 24 Hrs 09/14/18 09/14/18 09/14/18 06:35 06:35 06:35 WBC 15.9 H RBC 4.90 Hgb 15.7 H Hct 46.8 MCV 95.5 MCH 32.0 MCHC 33.5 RDW 15.8 H RDW Differential 54.2 H Plt Count 290 MPV 10.9 Sodium 134 L Potassium 4.1 Chloride 98 Carbon Dioxide 30.0 Anion Gap 6 BUN 15 Creatinine 0.84 Estim Creat Clear Calc 54.22 Est GFR (MDRD) Af Amer 89 Est GFR (MDRD) Non-Af 73 BUN/Creatinine Ratio 18.0 Glucose 135 H Calcium 8.8 Triglycerides 135 Cholesterol 144 LDL Cholesterol 82 VLDL Cholesterol 27 HDL Cholesterol 35 L Code Visit Addendum: Dr. Bauman I personally examined the patient and reviewed the chart. I agree with the above. Patient is a 63-year-old female with past medical history of schizophrenia, COPD who smokes 3 packs/day for many years and presented to the ER with shortness of breath. She is felt to be having an acute COPD exacerbation and was therefore started on Solu-Medrol 40 mg IV every 8 as well as Levaquin 500 daily and inhalers. She continues to be short of breath and is currently on 3 L nasal cannula. Overnight she went into SVT with heart rates in the 180s-190s, and was given adenosine required 12 mg for it to break. Cardiology was consulted for further evaluation. Inpatient E&M: 66379 Subs Hosp L2
--- NOTE | 2018-09-14 13:15 | CASEMGMT ---
KASSIE CORCORAN NOTE: Referral info faxed to [facility] @ [phone]. Call placed to [facility] and spoke with Aiyana. She confirmed the referral info was received and they will start the process for prior auth. Stone KIMN KASSIE CM
[2018-09-14] MEDS: LORazepam 0.5 MG Tablet PO (20:59)
[2018-09-14] MEDS: Atorvastatin Calcium 10 MG Tablet PO (20:59)
[2018-09-15] VITALS (22 sets, daily range): BP systolic 115–163; BP diastolic 64–101; PULSE 62–81; RESP 16–20; TEMP 36.6–37.1; O2SAT 82–94
[2018-09-15] MEDS: Ipratropium/Albuterol Sulfate 3 ML AMPUL.NEB INHALATION ×5 (00:10→22:50)
[2018-09-15] MEDS: 0.9% NaCl Peripheral Flush Adult/Peds IV ×3 (05:23→21:13)
[2018-09-15] MEDS: Nystatin Powder 15gm Bottle 1 APPLIC TOPICAL ×2 (09:24→21:12)
[2018-09-15] MEDS: Enoxaparin 40 MG/0.4 ML Syringe SC (09:24)
[2018-09-15] MEDS: Metoprolol Tartrate 25 MG Tablet PO ×2 (09:24→21:12)
[2018-09-15] MEDS: levoFLOXacin IV 500 MG/100 ML BAG 100 MG IV (09:24)
[2018-09-15] MEDS: Aspirin E.C. 325 MG Tablet PO (09:24)
--- NOTE | 2018-09-15 09:49 | CASEMGMT ---
Addendum entered by Wilder Balderas 09/15/18 12:06: Pt states if she requires O2 on discharge, that she has no preference of DME company. Pt also states to KASSIE CORCORAN that she plans to stop smoking, stating, ever since I found out I have COPD, I do not want to smoke any more. Pt declines offer of any medication or resources to help stop smoking. Advised, once she returns home, if she has difficulty with stopping smoking, to contact her PCP to discuss options with him. Pt voiced understanding. Original Note: KASSIE CORCORAN NOTE: Call placed to [facility] to inquire of status of prior auth from [facility]. Spoke with Aiyana @ [facility]. She states it is still currently being reviewed and no prior auth obtained as of yet. She states she will call KASSIE CORCORAN by 1130 today with an update. Stone DORSEY RN, CM
--- NOTE | 2018-09-15 14:03 | PCM.PN.CARD ---
Subjectve: At the present time the patient appears to be without symptoms of acute chest discomfort. She believes her breathing is somewhat improved. Objective: Vital Signs Temp Pulse Resp BP Pulse Ox 98.0 F 62 18 135/75 H 94 09/15/18 09:23 09/15/18 11:12 09/15/18 09:23 09/15/18 09:23 09/15/18 11:41 Oxygen Flow Rate (L/min) [ 2 AMBULATION with Oxygen] Oxygen Flow Rate (L/min) 2 Oxygen Delivery Method Room Air Weight: 203 lb 14.841 oz Body Mass Index (BMI) 37.3 Intake and Output for Last 24 Hours 09/13/18 09/14/18 09/15/18 23:59 23:59 23:59 Intake Total 1891 / 1891 3456 / 3456 942 / 942 Balance 189 / 1891 3456 / 3456 942 / 942 General: Awake, Alert, Cooperative, No Acute Distress, Obese HEENT: Atraumatic, Normocephalic, PERRL Neck: Supple, Good ROM, No JVD Lungs: - - Menaced breath sounds Cardiovascular: Regular Rhythm, Normal S1, Normal S2 Abdomen: Bowel Sounds Present, Soft, Non Tender Extremities: No edema Rhythm: Sinus rhythm Medical Necessity - Tobacco Use Smoking Status: Current every day smoker Assessment/Plan 1. Supraventricular tachycardia The patient has demonstrated evidence of an underlying paroxysmal supraventricular tachycardia. Based upon the findings and her response to IV adenosine therapy it appears this is related to an underlying reentry mechanism tachycardia. This may be brought out by her underlying COPD exacerbation, etc. It is unclear whether she has had episodes of this in the past that have been undiagnosed. At the present time she will continue to be monitored. She has been placed on beta-aarti therapy. Over time she may need to be considered for EP consultation for possible EPS/RFA. 2. Abnormal cardiac enzymes The patient does have a history of indeterminate troponin I levels. Again this may be secondary to her underlying COPD process and supply demand mismatch. However she has not been evaluated from a cardiovascular status for any other cardiac issues. Her echocardiogram was reviewed. Her overall LV wall motion and systolic function appear to be preserved. At the present time she will undergo further evaluation. This will include at minimum a pharmacologic stress nuclear imaging study. If this is unremarkable then she may be considered for continued medical management and follow-up. If there are concerns then she may need to be considered for further evaluation with diagnostic cardiac catheterization. This was discussed with the patient and she was agreeable to this approach. 3. COPD The patient will continue evaluation care for COPD exacerbation by internal medicine. 4. Schizophrenia The patient states she has been diagnosed with schizophrenia. She does not recall who has cared for or how she has been treated. 5. Obesity The patient has been counseled on the importance of dietary therapy, activity, etc. to try and bring her weight under better control. Comment: The above was discussed with the patient and the [facility] hospitalist team. This note was generated using a voice recognition system and there may be incorrect words, spelling or punctuation that were not noted when reviewing the office note prior to saving.
--- NOTE | 2018-09-15 14:54 | PCM.PROGNOTE ---
<Nakul Nelson - Last Filed: 09/15/18 14:54> Patient Problems: Active and Suspected Problems COPD (chronic obstructive pulmonary disease) (Acute) SVT (supraventricular tachycardia) (Acute) Abnormal cardiac enzyme level (Acute) Subjective: Resting comfortably in chair bedside with no complaints. No chest pain, no shortness of breath. She did desaturate when ambulating down the byrd to 82% and will need oxygen going forward. She still smokes about 3 packs/day and states she plans to quit at discharge. She does not have home oxygen currently. No fevers or chills. Nonproductive cough. - Physical Exam General: Alert, Oriented x3, Cooperative HEENT: Atraumatic, PERRLA, EOMI, Normocephalic Neck: Supple, No JVD, Negative Carotid Bruits Lungs: Diminished Cardiovascular: Regular rate, No murmurs Abdomen: Bowel Sounds Present, Soft, Non Tender Extremities: No edema, Capillary Refill Less than 3 Seconds Skin: No rashes, No breakdown Musculoskeletal: No Tenderness to Palpation of Joints or Extremities Neurological: Cranial nerves II-XII grossly intact Psych/Mental Status: Flat Affect, - - Upper extremity psychomotor agitation, Alert and oriented to time, place, person, mood and affect Vital Signs Temp Pulse Resp BP Pulse Ox 98.0 F 62 18 135/75 H 94 09/15/18 09:23 09/15/18 11:12 09/15/18 09:23 09/15/18 09:23 09/15/18 11:41 Oxygen Flow Rate (L/min) [ 2 AMBULATION with Oxygen] Oxygen Flow Rate (L/min) 2 Oxygen Delivery Method Room Air Weight: 203 lb 14.841 oz Body Mass Index (BMI) 37.3 Intake and Output for Last 24 Hours 09/13/18 09/14/18 09/15/18 23:59 23:59 23:59 Intake Total 1891 / 1891 3456 / 3456 942 / 942 Balance 1891 / 1891 3456 / 3456 942 / 942 Medical Necessity - Tobacco Use Smoking Status: Current every day smoker Assessment/Plan All Active Problems COPD (chronic obstructive pulmonary disease) (Acute) SVT (supraventricular tachycardia) (Acute) Abnormal cardiac enzyme level (Acute) 1. Acute COPD exacerbation with acute hypoxia-currently requiring oxygen with ambulation. Continue duo nebs, Solu-Medrol. Change Levaquin to Doxy. Initially presented with leukocytosis. CXR on presentation without consolidation. Patient will need home oxygen with ambulation. 2. Paroxysmal [id number] started per cardiology, which adenosine was given twice during the stay. Echo shows EF of 60%, 1-2+ TVI, moderate pulmonary hypertension with RVSP of 58 mmHg. Trivial pericardial effusion, 1+ PVI, 1+ MVI. 3. Troponin elevation x1-cardiology following. Stress test tomorrow. 4. Schizophrenia-notable psychomotor agitation. Restart perphenazine. Patient no longer takes Haldol p.o. Stating reason that it oral Haldol is discontinued. 5. HLD - statin 6. Nicotine abuse - 3 ppd smoker. DVT ppx: lovenox DC planning: pending stress results tomorrow. Needs home oxygen. This patient was seen by Nakul Nelson PA-C under the supervision of Doctor Merna. <Alex Bauman F - Last Filed: 09/15/18 16:50> - Physical Exam Vital Signs Temp Pulse Resp BP Pulse Ox 98.8 F 76 18 126/64 H 92 09/15/18 15:20 09/15/18 15:20 09/15/18 15:20 09/15/18 15:20 09/15/18 15:20 Oxygen Flow Rate (L/min) [ 2 AMBULATION with Oxygen] Oxygen Flow Rate (L/min) 2 Oxygen Delivery Method Nasal Cannula Weight: 203 lb 14.841 oz Body Mass Index (BMI) 37.3 Intake and Output for Last 24 Hours 09/13/18 09/14/18 09/15/18 23:59 23:59 23:59 Intake Total 1891 / 1891 3456 / 3456 942 / 942 Balance 1891 / 1891 3456 / 3456 942 / 942 Code Visit Addendum: Dr. Bauman I personally examined the patient and reviewed the chart. I agree with the above. 63-year-old female presenting with a COPD exacerbation. During her hospitalization she was found to be in SVT requiring up to 12 mg of adenosine for reversal. Cardiology was consulted and recommended beginning beta-aarti therapy. She did have elevated cardiac enzymes and therefore had an echocardiogram which demonstrated overall normal LV wall motion and function however they recommended undergoing a a stress test in the morning. Inpatient E&M: 64447 Subs Hosp L2
--- NOTE | 2018-09-15 15:00 | PN_ITS ---
<Nakul Nelson - Last Filed: 09/15/18 14:54> Patient Problems: Active and Suspected Problems COPD (chronic obstructive pulmonary disease) (Acute) SVT (supraventricular tachycardia) (Acute) Abnormal cardiac enzyme level (Acute) Subjective: Resting comfortably in chair bedside with no complaints. No chest pain, no shor tness of breath. She did desaturate when ambulating down the byrd to 82% and will need oxygen going forward. She still smokes about 3 packs/day and states she plans to quit at discharge. She does not have home oxygen currently. No fevers or chills. Nonproductive cough. - Physical Exam General: Alert, Oriented x3, Cooperative HEENT: Atraumatic, PERRLA, EOMI, Normocephalic Neck: Supple, No JVD, Negative Carotid Bruits Lungs: Diminished Cardiovascular: Regular rate, No murmurs Abdomen: Bowel Sounds Present, Soft, Non Tender Extremities: No edema, Capillary Refill Less than 3 Seconds Skin: No rashes, No breakdown Musculoskeletal: No Tenderness to Palpation of Joints or Extremities Neurological: Cranial nerves II-XII grossly intact Psych/Mental Status: Flat Affect, - - Upper extremity psychomotor agitation, Alert and oriented to time, place, person, mood and affect Vital Signs Temp Pulse Resp BP Pulse Ox 98.0 F 62 18 135/75 H 94 09/15/18 09:23 09/15/18 11:12 09/15/18 09:23 09/15/18 09:23 09/15/18 11:41 Oxygen Flow Rate (L/min) [ 2 AMBULATION with Oxygen] Oxygen Flow Rate (L/min) 2 Oxygen Delivery Method Room Air Weight: 203 lb 14.841 oz Body Mass Index (BMI) 37.3 Intake and Output for Last 24 Hours 09/13/18 09/14/18 09/15/18 23:59 23:59 23:59 Intake Total 1891 / 1891 3456 / 3456 942 / 942 Balance 1891 / 1891 3456 / 3456 942 / 942 Medical Necessity - Tobacco Use Smoking Status: Current every day smoker Assessment/Plan All Active Problems COPD (chronic obstructive pulmonary disease) (Acute) SVT (supraventricular tachycardia) (Acute) Abnormal cardiac enzyme level (Acute) 1. Acute COPD exacerbation with acute hypoxia-currently requiring oxygen with a mbulation. Continue duo nebs, Solu-Medrol. Change Levaquin to Doxy. Initially presented with leukocytosis. CXR on presentation without consolidation. Patient will need home oxygen with ambulation. 2. Paroxysmal [id number] started per cardiology, which adenosine was given twice during the stay. Echo shows EF of 60%, 1-2+ TVI, moderate pulmonary hypertension with RVSP of 58 mmHg. Trivial pericardial effusion, 1+ PVI, 1+ MVI. 3. Troponin elevation x1-cardiology following. Stress test tomorrow. 4. Schizophrenia-notable psychomotor agitation. Restart perphenazine. Patient no longer takes Haldol p.o. Stating reason that it oral Haldol is discontinued. 5. HLD - statin 6. Nicotine abuse - 3 ppd smoker. DVT ppx: lovenox DC planning: pending stress results tomorrow. Needs home oxygen. This patient was seen by Nakul Nelson PA-C under the supervision of Doctor Merna. <Alex Bauman F - Last Filed: 09/15/18 16:50> - Physical Exam Vital Signs Temp Pulse Resp BP Pulse Ox 98.8 F 76 18 126/64 H 92 09/15/18 15:20 09/15/18 15:20 09/15/18 15:20 09/15/18 15:20 09/15/18 15:20 Oxygen Flow Rate (L/min) [ 2 AMBULATION with Oxygen] Oxygen Flow Rate (L/min) 2 Oxygen Delivery Method Nasal Cannula Weight: 203 lb 14.841 oz Body Mass Index (BMI) 37.3 Intake and Output for Last 24 Hours 09/13/18 09/14/18 09/15/18 23:59 23:59 23:59 Intake Total 1891 / 1891 3456 / 3456 942 / 942 Balance 1891 / 1891 3456 / 3456 942 / 942 Code Visit Addendum: Dr. Bauman I personally examined the patient and reviewed the chart. I agree with the above. 63-year-old female presenting with a COPD exacerbation. During her hospitalization she was found to be in SVT requiring up to 12 mg of adenosine for reversal. Cardiology was consulted and recommended beginning beta-aarti therapy. She did have elevated cardiac enzymes and therefore had an echocardiogram which demonstrated overall normal LV wall motion and function however they recommended undergoing a a stress test in the morning. Inpatient E&M: 16304 Subs Hosp L2
[2018-09-15] MEDS: LORazepam 0.5 MG Tablet PO (15:42)
[2018-09-15] MEDS: Atorvastatin Calcium 10 MG Tablet PO (21:12)
[2018-09-15] MEDS: Doxycycline 100 MG CAPSULE PO (21:12)
[2018-09-15] MEDS: Haloperidol 1 MG Tablet 2 MG PO (22:38)
[2018-09-16] VITALS (12 sets, daily range): BP systolic 103–195; BP diastolic 53–93; PULSE 63–78; RESP 16–18; TEMP 36.6–37.1; O2SAT 84–96
--- NOTE | 2018-09-16 05:55 | EKG12_ITS ---
Test Reason : AM EKG Blood Pressure : / mmHG Vent. Rate : 065 BPM Atrial Rate : 065 BPM P-R Int : 126 ms QRS Dur : 094 ms QT Int : 406 ms P-R-T Axes : 066 058 014 degrees QTc Int : 422 ms Normal sinus rhythm Possible Left atrial enlargement Incomplete right bundle branch block Nonspecific T wave abnormality Abnormal ECG Confirmed by DENA CHAPARRO, VANESSA ([id number]), art editor JAYLA CABEZAS ([id number]) on 09/20/2018 3:47:22 PM Referred By: RAMANA Confirmed By:VANESSA FERNANDES MD
[2018-09-16 06:02] LABS: Absolute Lymphocyte Count 0.76 X10^3/ul (0.83-4.51); Absolute Neutrophil Count 10.6 X10^3/uL (2.0-7.7); Basophil# 0.01 X10^3/uL; Basophil% 0.1 % (0-1); Hematocrit 46.6 % (37-47); Hemoglobin 15.5 g/dl (12.0-15.0); Lymphocyte # 0.76 X10^3/ul (4.0); Mean Corp Hgb Conc 33.3 g/gl (32-36); Mean Corpuscular Hgb 30.9 pg (27.0-32.0); Mean Platelet Vol. 10.4 fl (6.2-12.0); Monocyte# 1.21 X10^3/uL; Monocyte% 9.6 % (0-10); Neutrophil # 10.56 X10^3/uL (2.7-7.7); Neutrophil % 83.9 % (47-70); Platelet Count 257 K/mm3 (150-450); RBC Distribution Width CV 15.4 % (11.6-14.6); RBC Distribution Width SD 51.1 fl (35.1-43.9); Red Blood Count 5.01 M/mm3 (4.2-5.4); White Blood Count 12.6 K/mm3 (4.4-11.0)
[2018-09-16] MEDS: 0.9% NaCl Peripheral Flush Adult/Peds IV (06:06)
[2018-09-16 06:10] LABS: POSITIVE COUNT NO; POSITIVE DIFFERENTIAL NO; POSITIVE MORPHOLOGY NO
[2018-09-16 06:19] LABS: International Normalized Ratio 1.1; Prothrombin Time (Protime)PT. 14.1 SECONDS (11.7-14.9)
[2018-09-16 06:20] LABS: Partial Thromboplast Time 27.9 Seconds (24.1-36.2)
[2018-09-16 06:24] LABS: Anion Gap 8 (5-15); BUN 20 mg/dL (7-18); BUN/Creat Ratio 26.1 RATIO (10-20); Calcium,Total 8.3 mg/dL (8.5-10.1); Chloride 100 mmol/L (98-107); Creatinine, Serum 0.76 mg/dL (0.55-1.02); EST Glomerular Filtration Rate 81 mL/min (>60); Est Glom Filt Rate - Afr Amer 98 mL/min (>60); Estimated Creatinine Clearance 59.92 ml/min; Glucose 153 mg/dL (74-106); Potassium 3.8 mmol/L (3.5-5.1); Sodium Level 136 mmol/L (136-145)
[2018-09-16] MEDS: Ipratropium/Albuterol Sulfate 3 ML AMPUL.NEB INHALATION ×3 (06:41→15:07)
[2018-09-16] MEDS: Aspirin E.C. 325 MG Tablet PO (09:22)
[2018-09-16] MEDS: Metoprolol Tartrate 25 MG Tablet PO (09:36)
--- NOTE | 2018-09-16 09:37 | NURSING ---
Dr. Tolbert called rehan instructed to give lopressor
--- NOTE | 2018-09-16 11:31 | STRESSREP ---
Stress Test Report Date: 05/16/2018 Procedure: Pharmacologic stress nuclear imaging study Indications: Shortness of breath/dyspnea; abnormal cardiac enzymes; SVT Consent: Per the patient Procedure: The patient underwent pharmacologic (Regadenoson) evaluation with a peak heart rate of 82 beats per minute (52 predicted maximal heart rate) and a peak blood pressure of 152/94 mmHg. The baseline ECG demonstrated normal sinus rhythm [place]: Nonspecific T wave abnormality. The peak pharmacologic ECG demonstrated no obvious ECG changes. There were no cardiac dysrhythmias pretest, during pharmacologic infusion, or recovery. There was no complaint of chest discomfort during pharmacologic infusion or recovery. The examination was discontinued secondary to completion of protocol. Impression: 1. Pharmacologic (Regadenoson) evaluation 2. Peak pharmacologic ECG with continued nonspecific T wave abnormality with no obvious ECG changes. 3. There were no cardiac dysrhythmias pretest, during pharmacologic infusion, or recovery. 4. Nuclear images pending Myocardial perfusion imaging study: Technique: The patient was injected with 14.5 millicuries of technetium 99m Cardiolite and subsequently rest SPECT Cardiolite nuclear imaging was obtained in the horizontal long, vertical long, and short axis views. The patient underwent pharmacologic (Regadenoson) evaluation with a peak heart rate of 82 beats per minute (52 % percent predicted maximal heart rate) and a peak blood pressure of 154/94 mmHg. The patient was injected with 44.8 millicuries of technetium 99m Cardiolite and subsequently stress SPECT Cardiolite nuclear imaging was obtained in the horizontal long, vertical long, and short axis views. A gated Cardiolite study at peak stress was obtained. Interpretation: Rest and stress SPECT Cardiolite nuclear imaging status post realignment, normalization, and attenuation correction demonstrates extracardiac/gastrointestinal tracer uptake and otherwise relative uniform tracer uptake and myocardial perfusion appearing within normal limits. There is end systolic thickening and brightening. The gated Cardiolite study demonstrates myocardial thickening and inward wall motion. The reported LVEF is 61 %. Impression: 1. Rest and stress SPECT Cardiolite nuclear imaging demonstrate relative uniform tracer uptake and myocardial perfusion appearing within normal limits. 2. The gated Cardiolite study reports an LVEF of 61 %. This note was generated with Gamgeeation software. It may contain incorrect words, spelling, and punctuation that were not noted in checking the note before signing.
--- NOTE | 2018-09-16 11:45 | DCINST_ITS ---
- Discharge Diagnoses Current Active Problems: Current Active and Chronic Problems Schizophrenia (Chronic) Smoker (Chronic) COPD (chronic obstructive pulmonary disease) (Acute) Obesity (Chronic) SVT (supraventricular tachycardia) (Acute) Abnormal cardiac enzyme level (Acute) You will use the following diet at home:: Cardiac Your food should be the consistency of: Regular Your liquids should be the consistency of: Regular/Thin Discharge Activity: Return to Normal Activity Allergies/Adverse Reactions: Allergies No Known Allergies Allergy (Verified 09/12/18 20:23) Medications to take at Discharge Atorvastatin Calcium [Lipitor] 10 mg PO DAILY 09/12/18 Lorazepam [Ativan] 0.5 mg PO BID 09/12/18 Mometasone/Formoterol [Dulera 100 Mcg/5 Mcg Inhaler] 2 puff INHALATION BID 09/12/18 Perphenazine 8 mg PO BID 09/12/18 Aspirin E.C. [Ecotrin] 325 mg PO DAILY@0800 tablet 09/16/18 Doxycycline 100 mg PO BID #1 capsule 09/16/18 Metoprolol Tartrate [Lopressor (beta aarti)] 25 mg PO BID #60 tablet 09/16/18 Nystatin Powder [Mycostatin Powder] 1 applic TOPICAL BID bottle 09/16/18 Prednisone 10 mg PO UD #30 tablet 09/16/18 The following prescriptions were given: Doxycycline 100 mg PO BID #1 capsule Metoprolol Tartrate [Lopressor (beta aarti)] 25 mg PO BID #60 tablet Prednisone 10 mg PO UD #30 tablet Primary Care Physician: Elpidio Coughlin [Primary Care Provider] - Please follow up with your Primary Care Physician in: 1-2 weeks Test Results: Test results from this visit will be discussed in further detail at your follow- up appointment, if applicable. Please Follow Up With: Tank Tolbert MD When: 2 weeks Proposed Discharge Date: 09/16/18
[2018-09-16] MEDS: Doxycycline 100 MG CAPSULE PO (12:05)
[2018-09-16] MEDS: Nystatin Powder 15gm Bottle 1 APPLIC TOPICAL (12:11)
--- NOTE | 2018-09-16 12:12 | CASEMGMT ---
KASSIE CORCORAN NOTE: Call placed to Aiyana @ [facility] to check on status of Insurance approval. Still awaiting insurance acceptance. Stone DORSEY RN CM
--- NOTE | 2018-09-16 14:02 | PCM.DC.SUM ---
<Nakul Nelson - Last Filed: 09/16/18 14:02> Discharge Date and Diagnosis - Problem List Patient Problems: Active and Suspected Problems COPD (chronic obstructive pulmonary disease) (Acute) SVT (supraventricular tachycardia) (Acute) Abnormal cardiac enzyme level (Acute) Date of Admission: 09/12/18 Date of Discharge: 09/16/18 - Primary Discharge Diagnosis Active and Suspected Problems Acute COPD exacerbation (chronic obstructive pulmonary disease) (Acute) pSVT (supraventricular tachycardia) (Acute) Elevated troponin pulmonary HTN Schizophrenia HLD Nicotine abuse - Secondary Discharge Diagnosis Chronic Problems Schizophrenia (Chronic) Smoker (Chronic) Obesity (Chronic) Hospital Course and Treatment Imaging Results: 09/16/18 05:55 Nuclear Stress Test - Chemical [NM] AM (NON MEDS) Impression: 1. Rest and stress SPECT Cardiolite nuclear imaging demonstrate relative uniform tracer uptake and myocardial perfusion appearing within normal limits. 2. The gated Cardiolite study reports an LVEF of 61 %. RAD/Chest 1 View (Portable) IMPRESSION: No visible focal consolidation. Echo: Interpretation Summary The study was technically difficult. Left ventricular systolic function is normal. The estimated ejection fraction is 60 %. Mild (1+) mitral valve insufficiency. Mild to moderate (1-2+) tricuspid valve insufficiency. Mild focal aortic valve thickening. Mild (1+) pulmonic valve insufficiency. Trivial pericardial effusion. There are no echocardiographic indications of cardiac tamponade. Right ventricular systolic pressure estimated to be 58 mmHg c/w pulmonary hypertension. Diastolic function is indeterminate. Consults: Cardiology - [facility] Operations: None Procedures: 2-D Echocardiogram, Stress test Summary of Care Provided: Hospital course: The patient is a 63 year old F with pmhx of COPD, nicotine abuse - smokes 3 ppd, schizophrnia, obesity, who presented to the ER with c/o worsening SOB x 3 days who came to the ER by squad after falling at home. She was found to have pulse ox of 84% and had an indeterminate troponin. She was placed on PCU on teelmetry. She was given steroids, antibiotics, and breathing treatments. Enzymes were cycled and returned to normal. She had pSVT while here and received adenosine twice. Cardiology was consulted. Once her breathing improved she underwent a stress test which was negative. She was counselled on smoking cessation. She was placed on a beta aarti for pSVT. Echo was obtained with results as above. She was discharged home on a prednisone taper. She will follow up with her PCP in 1-2 weeks and Cardiology in 2 weeks. She desaturated with ambulation and will require oxygen for use at home with activity. This was arranged for her. This patient was seen by Nakul Nelson PA-C under the supervision of Doctor Merna. [] Patient Problems: Active and Suspected Problems COPD (chronic obstructive pulmonary disease) (Acute) SVT (supraventricular tachycardia) (Acute) Abnormal cardiac enzyme level (Acute) - Physical Exam Vital Signs Temp Pulse Resp BP Pulse Ox 98.8 F 63 18 154/83 H 91 09/16/18 12:02 09/16/18 12:02 09/16/18 12:02 09/16/18 12:02 09/16/18 12:30 Oxygen Flow Rate (L/min) [ 2 AMBULATION with Oxygen] Oxygen Flow Rate (L/min) 2 Oxygen Delivery Method Nasal Cannula Weight: 203 lb 14.841 oz Body Mass Index (BMI) 37.3 Intake and Output for Last 24 Hours 09/14/18 09/15/18 09/16/18 23:59 23:59 23:59 Intake Total 3456 / 3456 1742 / 1742 740 / 740 Balance 3456 / 3456 1742 / 1742 740 / 740 Laboratory Tests Past 24 Hrs 09/16/18 09/16/18 09/16/18 05:40 05:40 05:40 WBC 12.6 H RBC 5.01 Hgb 15.5 H Hct 46.6 MCV 93.0 MCH 30.9 MCHC 33.3 RDW 15.4 H RDW Differential 51.1 H Plt Count 257 MPV 10.4 Immature Gran % (Auto) 0.400 Neut % (Auto) 83.9 H Lymph % (Auto) 6.0 L Hamblen % (Auto) 9.6 Eos % (Auto) 0.0 Baso % (Auto) 0.1 Absolute Neuts (auto) 10.6 H Absolute Lymphs (auto) 0.76 L Total Counted Not Reportable PT 14.1 INR 1.1 APTT 27.9 Sodium 136 Potassium 3.8 Chloride 100 Carbon Dioxide 28.0 Anion Gap 8 BUN 20 H Creatinine 0.76 Estim Creat Clear Calc 59.92 Est GFR (MDRD) Af Amer 98 Est GFR (MDRD) Non-Af 81 BUN/Creatinine Ratio 26.1 H Glucose 153 H Calcium 8.3 L Discharge Diet: Low fat/ Low Cholesterol, 2000 mg Sodium Diet Discharge Activity: Return to Normal Activity Home Medications: Medications to take at Discharge Atorvastatin Calcium [Lipitor] 10 mg PO DAILY 09/12/18 Lorazepam [Ativan] 0.5 mg PO BID 09/12/18 Mometasone/Formoterol [Dulera 100 Mcg/5 Mcg Inhaler] 2 puff INHALATION BID 09/12/18 Perphenazine 8 mg PO BID 09/12/18 Albuterol Inhaler [Ventolin Hfa] 1 puff INHALATION Q6H PRN PRN #1 inhaler 09/16/18 Aspirin E.C. [Ecotrin] 325 mg PO DAILY@0800 tablet 09/16/18 Doxycycline 100 mg PO BID #1 capsule 09/16/18 Metoprolol Tartrate [Lopressor (beta aarti)] 25 mg PO BID #60 tablet 09/16/18 Nystatin Powder [Mycostatin Powder] 1 applic TOPICAL BID bottle 09/16/18 Prednisone 10 mg PO UD #30 tablet 09/16/18 Following Prescrptions Were Given to Patient: Albuterol Inhaler [Ventolin Hfa] 1 puff INHALATION Q6H PRN PRN #1 inhaler PRN Reason: Sob &/Or Wheezing Doxycycline 100 mg PO BID #1 capsule Metoprolol Tartrate [Lopressor (beta aarti)] 25 mg PO BID #60 tablet Prednisone 10 mg PO UD #30 tablet Primary Care Physician: Elpidio Coughlin [Primary Care Provider] - Please follow up with your Primary Care Physician in: 1-2 weeks Please Follow Up With: Tank Tolbert MD When: 2 weeks Disposition: Home Minutes spent on discharge:: 35 Patient Condition:: Stable Medical Necessity - Tobacco Use Smoking Status: Current every day smoker Meaningful Use Info Meaningful Use Diagnoses (Choose all that apply): None applicable <Alex Bauman - Last Filed: 09/16/18 14:28> Discharge Date and Diagnosis - Primary Discharge Diagnosis Active and Suspected Problems COPD (chronic obstructive pulmonary disease) (Acute) SVT (supraventricular tachycardia) (Acute) Abnormal cardiac enzyme level (Acute) - Secondary Discharge Diagnosis Chronic Problems Schizophrenia (Chronic) Smoker (Chronic) Obesity (Chronic) Hospital Course and Treatment Imaging Results: 09/16/18 05:55 Nuclear Stress Test - Chemical [NM] AM (NON MEDS) Summary of Care Provided: The patient is a 63 year old F [] - Physical Exam Vital Signs Temp Pulse Resp BP Pulse Ox 98.8 F 63 18 154/83 H 91 09/16/18 12:02 09/16/18 12:02 09/16/18 12:02 09/16/18 12:02 09/16/18 12:30 Oxygen Flow Rate (L/min) [ 2 AMBULATION with Oxygen] Oxygen Flow Rate (L/min) 2 Oxygen Delivery Method Nasal Cannula Weight: 203 lb 14.841 oz Body Mass Index (BMI) 37.3 Intake and Output for Last 24 Hours 09/14/18 09/15/18 09/16/18 23:59 23:59 23:59 Intake Total 3456 / 3456 1742 / 1742 1260 / 1260 Balance 3456 / 3456 1742 / 1742 1260 / 1260 Laboratory Tests Past 24 Hrs 09/16/18 09/16/18 09/16/18 05:40 05:40 05:40 WBC 12.6 H RBC 5.01 Hgb 15.5 H Hct 46.6 MCV 93.0 MCH 30.9 MCHC 33.3 RDW 15.4 H RDW Differential 51.1 H Plt Count 257 MPV 10.4 Immature Gran % (Auto) 0.400 Neut % (Auto) 83.9 H Lymph % (Auto) 6.0 L Hamblen % (Auto) 9.6 Eos % (Auto) 0.0 Baso % (Auto) 0.1 Absolute Neuts (auto) 10.6 H Absolute Lymphs (auto) 0.76 L Total Counted Not Reportable PT 14.1 INR 1.1 APTT 27.9 Sodium 136 Potassium 3.8 Chloride 100 Carbon Dioxide 28.0 Anion Gap 8 BUN 20 H Creatinine 0.76 Estim Creat Clear Calc 59.92 Est GFR (MDRD) Af Amer 98 Est GFR (MDRD) Non-Af 81 BUN/Creatinine Ratio 26.1 H Glucose 153 H Calcium 8.3 L Code Visit Addendum: Dr. Bauman I personally examined the patient and reviewed the chart. I agree with the above. 63-year-old female presenting with a COPD exacerbation. During her hospitalization she was found to be in SVT requiring up to 12 mg of adenosine for reversal. Cardiology was consulted and recommended beginning beta-aarti therapy. She did have elevated cardiac enzymes and therefore had an echocardiogram which demonstrated overall normal LV wall motion and function however they recommended undergoing a a stress test in the morning which was read as negative. Her blood pressure was temporarily elevated this morning however that was because her beta-aarti has been held when it was restarted her blood pressure returned down to her baseline of 130-150. Because of her COPD exacerbation she was discharged on albuterol inhaler, doxycycline, prednisone. She was ambulate in the hallway and did desaturate and therefore she was also sent home on oxygen with follow-up to her PCP and cardiology. Inpatient E&M: [id number] Disch Hosp
--- NOTE | 2018-09-16 14:20 | CASEMGMT ---
KASSIE CORCORAN NOTE: Home O2 qualification testing completed. See findings. notified and [place] obtained[place] [facility] [place] to [employer] and they confirmed they received the script and are aware pt is discharging today. Stated portable O2 tank will be delivered to pt's room today. Jaimie FERNANDO, made aware. KASSIE CORCORAN to room to talk with pt. She was made aware she is to call [employer] upon discharge to make arrangements for them to deliver O2 concentrator when she arrives home. Pt voiced understanding. Phone number provided. Discussed importance of not smoking or allowing anyone else to smoke around the oxygen and explained to pt how very dangerous it would be if this would happen. Pt voiced understanding and stated she is not going to smoke anymore. Stone DORSEY RN CM
--- NOTE | 2018-09-16 15:00 | CASEMGMT ---
KASSIE CORCORAN NOTE: Call received from [facility]. Insurance Approval received and they are able to take pt. Discharge Instructions and d/c summary faxed to [facility] @ [phone]. They state they also need Start of Care order faxed to them. Form received from [facility]. Dr Bauman signed and form faxed back to [facility]. Stone DORSEY RN CM
--- OUTSIDE RECORDS SUMMARY | 2018-10-25 16:25 | XMS RPT_ITS ---
:1955 Author Organization [facility] Support Name Relationship Address Phone MAURICE CARREON Unavailable [address] [place] [address] ULISES LICONA Unavailable [address] + [place] [address] UE Unavailable Unavailable Unavailable MAURICE CARREON Unavailable [address] [place] [address] ULISES LICONA Unavailable [address] + [place] [address] UE Unavailable Unavailable Unavailable MAURICE CARREON Unavailable [address] [place] [address] ULISES LICONA Unavailable [address] + [place] [address] UE Unavailable Unavailable Unavailable MAURICE CARREON Unavailable [address] [place] [address] ULISES LICONA Unavailable [address] + [place] [address] UE Unavailable Unavailable Unavailable MAURICE CARREON Unavailable [address] [place] [address] ULISES LICONA Unavailable [address] + [place] [address] UE Unavailable Unavailable Unavailable MAURICE CARREON Unavailable [address] [facility] [place] [address] ULISES LICONA Unavailable [address] + [place] [address] UE Unavailable Unavailable Unavailable MAURICE CARREON Unavailable [address] [place] [address] ULISES LICONA Unavailable [address] + [place] [address] UE Unavailable Unavailable Unavailable MAURICE CARREON Unavailable [address] [place] [address] ULISES LICONA Unavailable [address] + [place] [address] UE Unavailable Unavailable Unavailable MAURICE CARREON Unavailable [facility] [address] [place] [address] MONAE ULISES Unavailable [address] + [place] [address] UE Unavailable Unavailable Unavailable Care Team Providers Name Role Phone Shady Lux Attending Unavailable Jeffery, Tank Referring Unavailable Moodispaw, Tank Attending Unavailable Alex Bauman Referring Unavailable [facility] Gil, Tank Admitting Unavailable Alex Bauman Attending Unavailable MoodisTank [employer] Unavailable Gil, Tank Admitting Unavailable Gil, Tank Attending Unavailable [facility] Unavailable Gil, Tank Consulting Unavailable Gil, Tank Admitting Unavailable [facility] [place] [facility] Alex Bauman Consulting Unavailable Alex Bauman Attending Unavailable Gil, Tank Admitting Unavailable [facility] Unavailable Moodispaok, Tank Consulting Unavailable Alex Bauman Attending Unavailable Alex Bauman Consulting Unavailable Jeffery, Tank Admitting Unavailable Moodispaok, Tank Attending Unavailable [facility] [place] [facility] Moodisroxanne, Tank Consulting Unavailable Alex Bauman Consulting Unavailable Gil, Tank Admitting Unavailable [facility] [place] [facility]available Moodispaok, Tank Consulting Unavailable Alex Bauman Attending Unavailable Alex Bauman Consulting Unavailable Gil, Tank Admitting Unavailable [facility] [place] [facility]available Moodisroxanne, Tank Consulting Unavailable Alex Bauman Attending Unavailable Alex Bauman Consulting Unavailable PROBLEMS PROBLEMS DATE TYPE CONDITION / CODE ATTENDING STATUS SOURCE 10/03/2018 Unknown R94.31 - Abnormal Shady Lux Active [facility] electrocardiogram Community [ECG] [EKG] / Hospital R94.31(ICD-10) Repository PROCEDURES PROCEDURES No Procedure Records FoundRESULTS RESULTS 12 LEAD ELECTROCARDIOGRAM Observed: 09/20/2018 Status: F Source: [place] 3:47 PM [facility] REPOSITORY [facility] Cardiovascular Services [address] [place] [address] 12 Lead EKG 09/16/18 0548 MR#: [id number] Acct: [id number] Name: YAEL SAVAGE Rep #: [id number] : 1955 63 From: Tank Fernandes MD Attending Dr: Alex Bauman MD Status: DIS IN Ordering Dr: Alex Bauman MD Date: 09/16/18 Location: [facility] Sex: F C Admitted: 09/12/18 Test Reason : AM EKG Blood Pressure : / mmHG Vent. Rate : 065 BPM Atrial Rate : 065 BPM P-R Int : 126 ms QRS Dur : 094 ms QT Int : 406 ms P-R-T Axes : 066 058 014 degrees QTc Int : 422 ms Normal sinus rhythm Possible Left atrial enlargement Incomplete right bundle branch block Nonspecific T wave abnormality Abnormal ECG Confirmed by DENA CHAPARRO, TANK ([id number]), field map editor JAYLA CABEZAS ([id number]) on 09/20/2018 3:47:22 PM Referred By: MERNA Confirmed By:TANK FERNANDES MD 09/20/18 1547 Date Tank Fernandes MD CC: Elpidio Coughlin; Elpidio Coughlin DO; Alex Bauman MD Signed DISCHARGE SUMMARY Observed: 09/16/2018 Status: F Source: [place] 2:29 PM [facility] REPOSITORY [facility] Medical Records Department [address] [place] [address] Discharge Summary 09/16/18 1402 MR#: [id number] Acct: [id number] Name: YAEL SAVAGE Rep #: [id number] : 1955 63 From: Nakul GALLAGHER PCP: Elpidio Coughlin Status: ADM IN Y Location: [place] [address]-1 <Nakul Nelson - Last Filed: 09/16/18 14:02> Discharge Date and Diagnosis - Problem List Patient Problems: Active and Suspected Problems COPD (chronic obstructive pulmonary disease) (Acute) SVT (supraventricular tachycardia) (Acute) Abnormal cardiac enzyme level (Acute) Date of Admission: 09/12/18 Date of Discharge: 09/16/18 - Primary Discharge Diagnosis Active and Suspected Problems Acute COPD exacerbation (chronic obstructive pulmonary disease) (Acute) pSVT (supraventricular tachycardia) (Acute) Elevated troponin pulmonary HTN Schizophrenia HLD Nicotine abuse - Secondary Discharge Diagnosis Chronic Problems Schizophrenia (Chronic) Smoker (Chronic) Obesity (Chronic) Hospital Course and Treatment Imaging Results: 09/16/18 05:55 Nuclear Stress Test - Chemical [NM] AM (NON MEDS) Impression: 1. Rest and stress SPECT Cardiolite nuclear imaging demonstrate relative uniform tracer uptake and myocardial perfusion appearing within normal limits. 2. The gated Cardiolite study reports an LVEF of 61 %. RAD/Chest 1 View (Portable) IMPRESSION: No visible focal consolidation. Echo: Interpretation Summary The study was technically difficult. Left ventricular systolic function is normal. The estimated ejection fraction is 60 %. Mild (1+) mitral valve insufficiency. Mild to moderate (1-2+) tricuspid valve insufficiency. Mild focal aortic valve thickening. Mild (1+) pulmonic valve insufficiency. Trivial pericardial effusion. There are no echocardiographic indications of cardiac tamponade. Right ventricular systolic pressure estimated to be 58 mmHg c/w pulmonary hypertension. Diastolic function is indeterminate. Consults: Cardiology - Moodispaw Operations: None Procedures: 2-D Echocardiogram, Stress test Summary of Care Provided: Hospital course: The patient is a 63 year old F with pmhx of COPD, nicotine abuse - smokes 3 ppd, schizophrnia, obesity, who presented to the ER with c/o worsening SOB x 3 days who came to the ER by squad after falling at home. She was found to have pulse ox of 84% and had an indeterminate troponin. She was placed on PCU on teelmetry. She was given steroids, antibiotics, and breathing treatments. Enzymes were cycled and returned to normal. She had pSVT while here and received adenosine twice. Cardiology was consulted. Once her breathing improved she underwent a stress test which was negative. She was counselled on smoking cessation. She was placed on a beta aarti for pSVT. Echo was obtained with results as above. She was discharged home on a prednisone taper. She will follow up with her PCP in 1-2 weeks and Cardiology in 2 weeks. She desaturated with ambulation and will require oxygen for use at home with activity. This was arranged for her. This patient was seen by Nakul Nelson PA-C under the supervision of Doctor Merna. [] Patient Problems: Active and Suspected Problems COPD (chronic obstructive pulmonary disease) (Acute) SVT (supraventricular tachycardia) (Acute) Abnormal cardiac enzyme level (Acute) - Physical Exam Vital Signs Temp Pulse Resp BP Pulse Ox 98.8 F 63 18 154/83 H 91 09/16/18 12:02 09/16/18 12:02 09/16/18 12:02 09/16/18 12:02 09/16/18 12:30 Oxygen Flow Rate (L/min) [ 2 AMBULATION with Oxygen] Oxygen Flow Rate (L/min) 2 Oxygen Delivery Method Nasal Cannula Weight: 203 lb 14.841 oz Body Mass Index (BMI) 37.3 Intake and Output for Last 24 Hours Intake Total 3456 / 3456 1742 / 1742 740 / 740 Balance 3456 / 3456 1742 / 1742 740 / 740 Laboratory Tests Past 24 Hrs Discharge Diet: Low fat/ Low Cholesterol, 2000 mg Sodium Diet Discharge Activity: Return to Normal Activity Home Medications: Medications to take at Discharge Atorvastatin Calcium [Lipitor] 10 mg PO DAILY 09/12/18 Lorazepam [Ativan] 0.5 mg PO BID 09/12/18 Mometasone/Formoterol [Dulera 100 Mcg/5 Mcg Inhaler] 2 puff INHALATION BID 09/12/18 Perphenazine 8 mg PO BID 09/12/18 Albuterol Inhaler [Ventolin Hfa] 1 puff INHALATION Q6H PRN PRN #1 inhaler 09/16/18 Aspirin E.C. [Ecotrin] 325 mg PO DAILY@0800 tablet 09/16/18 Doxycycline 100 mg PO BID #1 capsule 09/16/18 Metoprolol Tartrate [Lopressor (beta aarti)] 25 mg PO BID #60 tablet 09/16/18 Nystatin Powder [Mycostatin Powder] 1 applic TOPICAL BID bottle 09/16/18 Prednisone 10 mg PO UD #30 tablet 09/16/18 Following Prescrptions Were Given to Patient: Albuterol Inhaler [Ventolin Hfa] 1 puff INHALATION Q6H PRN PRN #1 inhaler PRN Reason: Sob AND /Or Wheezing Doxycycline 100 mg PO BID #1 capsule Metoprolol Tartrate [Lopressor (beta aarti)] 25 mg PO BID #60 tablet Prednisone 10 mg PO UD #30 tablet Primary Care Physician: Elpidio Coughlin [Primary Care Provider] - Please follow up with your Primary Care Physician in: 1-2 weeks Please Follow Up With: Tank Fernandes MD When: 2 weeks Disposition: Home Minutes spent on discharge:: 35 Patient Condition:: Stable Medical Necessity - Tobacco Use Smoking Status: Current every day smoker Meaningful Use Info Meaningful Use Diagnoses (Choose all that apply): None applicable <Alex Bauman F - Last Filed: 09/16/18 14:28> Discharge Date and Diagnosis - Primary Discharge Diagnosis Active and Suspected Problems COPD (chronic obstructive pulmonary disease) (Acute) SVT (supraventricular tachycardia) (Acute) Abnormal cardiac enzyme level (Acute) - Secondary Discharge Diagnosis Chronic Problems Schizophrenia (Chronic) Smoker (Chronic) Obesity (Chronic) Hospital Course and Treatment Imaging Results: 09/16/18 05:55 Nuclear Stress Test - Chemical [NM] AM (NON MEDS) Summary of Care Provided: The patient is a 63 year old F [] - Physical Exam Vital Signs Temp Pulse Resp BP Pulse Ox 98.8 F 63 18 154/83 H 91 09/16/18 12:02 09/16/18 12:02 09/16/18 12:02 09/16/18 12:02 09/16/18 12:30 Oxygen Flow Rate (L/min) [ 2 AMBULATION with Oxygen] Oxygen Flow Rate (L/min) 2 Oxygen Delivery Method Nasal Cannula Weight: 203 lb 14.841 oz Body Mass Index (BMI) 37.3 Intake and Output for Last 24 Hours Intake Total 3456 / 3456 1742 / 1742 1260 / 1260 Balance 3456 / 3456 1742 / 1742 1260 / 1260 Laboratory Tests Past 24 Hrs Code Visit Addendum: Dr. Bauman I personally examined the patient and reviewed the chart. I agree with the above. 63-year-old female presenting with a COPD exacerbation. During her hospitalization she was found to be in SVT requiring up to 12 mg of adenosine for reversal. Cardiology was consulted and recommended beginning beta-aarti therapy. She did have elevated cardiac enzymes and therefore had an echocardiogram which demonstrated overall normal LV wall motion and function however they recommended undergoing a a stress test in the morning which was read as negative. Her blood pressure was temporarily elevated this morning however that was because her beta-aarti has been held when it was restarted her blood pressure returned down to her baseline of 130-150. Because of her COPD exacerbation she was discharged on albuterol inhaler, doxycycline, prednisone. She was ambulate in the hallway and did desaturate and therefore she was also sent home on oxygen with follow-up to her PCP and cardiology. Inpatient E AND M: [id number] Disch Hosp 09/16/18 1409 <Electronically signed by Nakul GALLAGHER> Date Nakul GALLAGHER 09/16/18 1429<Electronically signed by Alex Bauman MD> Cosigner Signature (if applicable): Date Alex Bauman MD CC: AILEEN Nelson; Elpidio Coughlin; Elpidio Coughlin DO; Alex Bauman MD Signed 12 LEAD ELECTROCARDIOGRAM Observed: 09/16/2018 Status: F Source: [place] 2:06 PM [facility] REPOSITORY [facility] Cardiovascular Services [address] [place] [address] 12 Lead EKG 09/13/18 1911 MR#: [id number] Acct: [id number] Name: YAEL SAVAGE Rep #: [id number] : 1955 63 From: Shady Lux MD Attending Dr: Alex Bauman MD Status: ADM IN Ordering Dr: Kvng Mg MD Date: 09/13/18 Location: [facility] Sex: F C Admitted: 09/12/18 Test Reason : SVT Blood Pressure : / mmHG Vent. Rate : 190 BPM Atrial Rate : 182 BPM P-R Int : 000 ms QRS Dur : 080 ms QT Int : 214 ms P-R-T Axes : 000 081 235 degrees QTc Int : 380 ms Supraventricular tachycardia Nonspecific ST and T wave abnormality Abnormal ECG When compared with ECG of 12-SEP-2018 16:41, MANUAL COMPARISON REQUIRED, DATA IS UNCONFIRMED Confirmed by JORDAN CHAPARRO, SHADY ([id number]), field map editor MANINDER RAMIREZ ([id number]) on 09/16/2018 2:06:02 PM Referred By: DR MATHEW Confirmed By:SHADY LUX MD 09/16/18 1406 Date Shady Lux MD CC: Elpidio Coughlin; Elpidio Coughlin DO; Kvng Mg MD; Alex Bauman MD Signed 12 LEAD ELECTROCARDIOGRAM Observed: 09/16/2018 Status: F Source: [place] 2:05 PM [facility] REPOSITORY [facility] Cardiovascular Services [address] [place] [address] 12 Lead EKG 09/13/181927 MR#: [id number] Acct: [id number] Name: YAEL SAVAGE Rep #: [id number] : 1955 63 From: Shady Lux MD Attending Dr: Alex Bauman MD Status: ADM IN Ordering Dr: Kvng Mg MD Date: 09/13/18 Location: [facility] Sex: F C Admitted: 09/12/18 Test Reason : SVT Blood Pressure : / mmHG Vent. Rate : 089 BPM Atrial Rate : 089 BPM P-R Int : 102 ms QRS Dur : 092 ms QT Int : 304 ms P-R-T Axes : 051 093 036 degrees QTc Int : 369 ms Sinus rhythm with short MN Rightward axis Incomplete right bundle branch block Borderline ECG When compared with ECG of 13-SEP-2018 19:11, MANUAL COMPARISON REQUIRED, DATA IS UNCONFIRMED Confirmed by JORDAN CHAPARRO, SHADY ([id number]), field map editor MANINDER RAMIREZ ([id number]) on 09/16/2018 2:05:43 PM Referred By: DR VALLEJO Confirmed By:SHADY LUX MD 09/16/18 1405 Date Shady Lux MD CC: Elpidio Coughlin; Elpidio Coughlin DO; Kvng Mg MD; Alex Bauman MD Signed DISCHARGE INSTRUCTION Observed: 09/16/2018 Status: F Source: [place] 11:45 AM [facility] REPOSITORY [facility] Medical Records Department [address] [place] [address] Instructions for Home/Discharge Instructions 09/16/18 1143 MR#: [id number] Acct: [id number] Name: YAEL SAVAGE Frances Rep #: [id number] : 1955 63 From: Nakul GALLAGHER PCP: Elpidio Coughlin Status: ADM IN - Discharge Diagnoses Current Active Problems: Current Active and Chronic Problems Schizophrenia (Chronic) Smoker (Chronic) COPD (chronic obstructive pulmonary disease) (Acute) Obesity (Chronic) SVT (supraventricular tachycardia) (Acute) Abnormal cardiac enzyme level (Acute) You will use the following diet at home:: Cardiac Your food should be the consistency of: Regular Your liquids should be the consistency of: Regular/Thin Discharge Activity: Return to Normal Activity Allergies/Adverse Reactions: Allergies No Known Allergies Allergy (Verified 09/12/18 20:23) Medications to take at Discharge Atorvastatin Calcium [Lipitor] 10 mg PO DAILY 09/12/18 Lorazepam [Ativan] 0.5 mg PO BID 09/12/18 Mometasone/Formoterol [Dulera 100 Mcg/5 Mcg Inhaler] 2 puff INHALATION BID 09/12/18 Perphenazine 8 mg PO BID 09/12/18 Aspirin E.C. [Ecotrin] 325 mg PO DAILY@0800 tablet 09/16/18 Doxycycline 100 mg PO BID #1 capsule 09/16/18 Metoprolol Tartrate [Lopressor (beta aarti)] 25 mg PO BID #60 tablet 09/16/18 Nystatin Powder [Mycostatin Powder] 1 applic TOPICAL BID bottle 09/16/18 Prednisone 10 mg PO UD #30 tablet 09/16/18 The following prescriptions were given: Doxycycline 100 mg PO BID #1 capsule Metoprolol Tartrate [Lopressor (beta aarti)] 25 mg PO BID #60 tablet Prednisone 10 mg PO UD #30 tablet Primary Care Physician: Elpidio Coughlin [Primary Care Provider] - Please follow up with your Primary Care Physician in: 1-2 weeks Test Results: Test results from this visit will be discussed in further detail at your follow-up appointment, if applicable. Please Follow Up With: Tank Fernandes MD When: 2 weeks Proposed Discharge Date: 09/16/18 09/16/18 1145 <Electronically signed by Nakul GALLAGHER> Date Nakul GALLAGHER CC: Elpidio Coughlin; Elpidio Coughlin DO; Tank Fernandes MD STRESS REPORT Observed: 09/16/2018 Status: F Source: [place] 11:35 AM [facility] REPOSITORY [facility] Cardiovascular Services [address] [place] [address] MR#: [id number] Acct: [id number] Name: YAEL SAVAGE Rep #: [id number] : 1955 63 From: Tank Fernandes MD Primary Care: Elpidio Coughlin Status: ADM IN Ordering Dr: Sex: F C Stress Test Report Date: 05/16/2018 Procedure: Pharmacologic stress nuclear imaging study Indications: Shortness of breath/dyspnea; abnormal cardiac enzymes; SVT Consent: Per the patient Procedure: The patient underwent pharmacologic (Regadenoson) evaluation with a peak heart rate of 82 beats per minute (52 predicted maximal heart rate) and a peak blood pressure of 152/94 mmHg. The baseline ECG demonstrated normal sinus rhythm TN: Nonspecific T wave abnormality. The peak pharmacologic ECG demonstrated no obvious ECG changes. There were no cardiac dysrhythmias pretest, during pharmacologic infusion, or recovery. There was no complaint of chest discomfort during pharmacologic infusion or recovery. The examination was discontinued secondary to completion of protocol. Impression: 1. Pharmacologic (Regadenoson) evaluation 2. Peak pharmacologic ECG with continued nonspecific T wave abnormality with no obvious ECG changes. 3. There were no cardiac dysrhythmias pretest, during pharmacologic infusion, or recovery. 4. Nuclear images pending Myocardial perfusion imaging study: Technique: The patient was injected with 14.5 millicuries of technetium 99m Cardiolite and subsequently rest SPECT Cardiolite nuclear imaging was obtained in the horizontal long, vertical long, and short axis views. The patient underwent pharmacologic (Regadenoson) evaluation with a peak heart rate of 82 beats per minute (52 % percent predicted maximal heart rate) and a peak blood pressure of 154/94 mmHg. The patient was injected with 44.8 millicuries of technetium 99m Cardiolite and subsequently stress SPECT Cardiolite nuclear imaging was obtained in the horizontal long, vertical long, and short axis views. A gated Cardiolite study at peak stress was obtained. Interpretation: Rest and stress SPECT Cardiolite nuclear imaging status post realignment, normalization, and attenuation correction demonstrates extracardiac/gastrointestinal tracer uptake and otherwise relative uniform tracer uptake and myocardial perfusion appearing within normal limits. There is end systolic thickening and brightening. The gated Cardiolite study demonstrates myocardial thickening and inward wall motion. The reported LVEF is 61 %. Impression: 1. Rest and stress SPECT Cardiolite nuclear imaging demonstrate relative uniform tracer uptake and myocardial perfusion appearing within normal limits. 2. The gated Cardiolite study reports an LVEF of 61 %. This note was generated with [employer] software. It may contain incorrect words, spelling, and punctuation that were not noted in checking the note before signing. 09/16/18 1135 <Electronically signed by Tank Fernandes MD> Date Tank Fernandes MD CC: Elpidio Coughlin; Elpidio Coughlin DO; Alex Bauman MD Date Dictated: 09/16/18 1131 Date Transcribed: 09/16/181130 Senior Developer: PM Signed 12 LEAD ELECTROCARDIOGRAM Observed: 09/16/2018 Status: F Source: [place] 9:28 AM [facility] REPOSITORY [facility] Cardiovascular Services [address] [place] [address] 12 Lead EKG 09/12/18 1641 MR#: [id number] Acct: [id number] Name: YAEL SAVAGE Rep #: [id number] : 1955 63 From: Tank Fernandes MD Attending Dr: Alex Bauman MD Status: ADM IN Ordering Dr: Mono Rojas MD Date: 09/12/18 Location: [facility] Sex: F C Admitted: 09/12/18 Test Reason : SYNCOPE Blood Pressure : / mmHG Vent. Rate : 097 BPM Atrial Rate : 097 BPM P-R Int : 120 ms QRS Dur : 090 ms QT Int : 330 ms P-R-T Axes : 064 134 067 degrees QTc Int : 419 ms Poor data quality, interpretation may be adversely affected Sinus rhythm with Premature atrial complexes Right axis deviation Low voltage QRS RSR' or QR pattern in V1 suggests right ventricular conduction delay Abnormal ECG Confirmed by DENA CHAPARRO, TANK ([id number]), field map editor MANINDER RAMIREZ ([id number]) on 09/14/2018 4:22:44 PM Referred By: ARCHANA Confirmed By:TANK FERNANDES MD 09/14/18 1622 Date Tank Fernandes MD CC: Elpidio Coughlin; Elpidio Coughlin DO; Mono Rojas MD; Alex Bauman MD Signed CBC W/DIFF, AUTOMATED Collected: 09/16/2018 Status: F Source: [place] 5:40 AM [facility] REPOSITORY TYPE CODE TESTS RESULT OUT OF RANGE REFERENCE UNITS LAB L100.1000 4.4-11.0 K/mm3 High WBC 12.6 LAB L100.1200 4.2-5.4 M/mm3 Normal RBC 5.01 LAB L100.1300 12.0-15.0 g/dl High HGB 15.5 LAB L100.1400 37-47 % Normal HCT 46.6 LAB L100.1500 81-99 fL Normal MCV 93.0 LAB L100.1600 27.0-32.0 pg Normal MCH 30.9 LAB L100.1700 32-36 g/gl Normal MCHC 33.3 LAB L100.1810 11.6-14.6 % High RDW CV 15.4 LAB L100.1820 35.1-43.9 fl High RDW SD 51.1 LAB L100.1900 150-450 K/mm3 Normal PLT 257 LAB L100.2000 6.2-12.0 fl Normal MPV 10.4 LAB L100.2100 47-70 % High NEUT% 83.9 LAB L100.2200 19-41 % Low LY% 6.0 LAB L100.2300 0-10 % Normal MONO% 9.6 LAB L100.2400 0-5 % Normal EO% 0.0 LAB L100.2500 0-1 % Normal BASO% 0.1 LAB L100.2550 0.0-0.9 % Normal IM GRAN % 0.400 Result Comment: IG% - Immature Granulocytes (promyelocytes, myelocytes and metamyelocytes) > 1% indicates that a LEFT SHIFT is Present. LAB L100.2620 2.0-7.7 X10 3/uL High Absolute Neut 10.6 LAB L100.2720 0.83-4.51 X10 3/ul Low Absolute Lymph 0.76 Performed By: #### L100.0100 #### [facility] [address] [place], [address] BASIC METABOLIC Collected: 09/16/2018 Status: F Source: [place] PROFILE ([facility]) 5:40 AM [facility] REPOSITORY TYPE CODE TESTS RESULT OUT OF RANGE REFERENCE UNITS LAB L501.0100 74-106 mg/dL High GLU 153 Result Comment: Fasting Glucose result greater than or equal to 126 mg/dL suggests DIABETES MELLITUS per A.D.A. criteria. Please note revised GLUCOSE reference range effective 2017. LAB L501.1000 7-18 mg/dL High BUN 20 LAB L501.1100 0.55-1.02 mg/dL Normal CREAT,SERUM 0.76 Result Comment: The validity of the calculated GFR AND GFRAA in patients over 70 years has not been determined. Clinical correlation is essential. LAB L501.1110 >60 mL/min Normal EST GFR 81 Result Comment: Non- GFR Calc LAB L501.1115 >60 mL/min Normal EST GFR - AA 98 Result Comment: GFR Calc LAB L501.1255 ml/min Normal Estimated CRCL 59.92 LAB L501.1300 10-20 RATIO High BUN/CRE 26.1 LAB L501.2200 8.5-10 mg/dL Low .1 CA 8.3 LAB L501.5300 136-14 mmol/L Normal 5 NA 136 LAB L501.5600 3.5-5. mmol/L Normal 1 K 3.8 LAB L501.5900 98-107 mmol/L Normal CL 100 LAB L501.6100 21.0-3 mmol/L Normal 2.0 CO2 28.0 LAB L501.6200 5-15 Normal GAP 8 Performed By: #### L500.2500 #### [facility] [address] [place], [address] PROTHROMBIN TIME W/INR Collected: 09/16/2018 Status: F Source: [place] 5:40 AM [facility] REPOSITORY TYPE CODE TESTS RESULT OUT OF RANGE REFERENCE UNITS LAB L300.4150 11.7-14.9 SECONDS Normal PROTIME 14.1 LAB L300.4200 Normal INR 1.1 Performed By: #### L300.3900, L300.4310 #### [facility] [address] [place], [address] PARTIAL THROMBOPLAST Collected: 09/16/2018 Status: F Source: [place] TIME 5:40 AM [facility] REPOSITORY TYPE CODE TESTS RESULT OUT OF RANGE REFERENCE UNITS LAB L300.4310 24.1-36.2 Seconds Normal PTT 27.9 Performed By: #### L300.3900, L300.4310 #### [facility] [address] [place], [address] ECHOCARDIOGRAM COMPLETE Observed: 09/14/2018 Status: F Source: JOHNSON 2:12 PM [facility] REPOSITORY [facility] Cardiovascular Services [address] [place] [address] Echo Complete 09/14/18 1110 MR#: [id number] Acct: [id number] Name: YAEL SAVAGE #: [id number] : 1955 63 From: Tank Fernandes MD Attending Dr: Alex Bauman MD Status: ADM IN Ordering Dr: Tank Fernandes MD Date: 09/14/18 Location: [facility] Sex: F C Admitted: 09/12/18 Reason For Study: Arrhythmia Procedure This was a 2D Doppler, Color Flow transthoracic echocardiogram. Did not use Definity due to increased PAP. The study was technically difficult. Exam performed portable in patient room. Left Ventricle Normal LV size. Left ventricular systolic function is normal. The estimated ejection fraction is 60 %. Diastolic function is indeterminate. No regional wall motion abnormalities noted. Right Ventricle Normal RV size. Normal systolic function. Atria Normal left atrium. Normal right atrium. No doppler evidence for ASD. Mitral Valve There is no mitral annular calcification. Normal mitral valve. Mild (1+) mitral valve insufficiency. Tricuspid Valve Normal tricuspid valve. Mild to moderate (1-2+) tricuspid valve insufficiency. Right ventricular systolic pressure estimated to be 58 mmHg. Aortic Valve Trisinus/trileaflet aortic valve. Mild focal aortic valve thickening. Pulmonic Valve The pulmonic valve is not well visualized. Mild (1+) pulmonic valve insufficiency. Great Vessels Normal sized aortic root. Pericardium/Pleural Trivial pericardial effusion. There are no echocardiographic indications of cardiac tamponade. MMode/2D Measurements AND Calculations LVIDd: 5.1 cm IVSd: 1.2 cm Ao root diam: 3.2 cm LVIDs: 3.6 cm LVPWd: 0.96 cm RVDd: 4.2 cm FS: 28.9 % LAV(MOD-bp): 37.9 ml LA A4 area: 13.8 cm2 LA dimension(2D): 4.3 cm LAV(MOD-bp) Indexed: 19.7 ml/m2 LAV(MOD-sp2): 45.6 ml LAV(MOD-sp4): 29.9 ml RA A4 area: 18.4 cm2 Doppler Measurements AND Calculations MV E max curtis: 111.7 cm/sec Lat Peak E' Curtis: 7.2 cm/sec Med Peak E' Curtis: 7.7 cm/sec MV A max curtis: 92.4 cm/sec E/E' lat: 15.5 E/E' med: 14.4 MV E/A: 1.2 Ao V2 max: 168.2 cm/sec LV V1 max: 113.8 cm/sec PA V2 max: 86.8 cm/sec Ao max P.3 mmHg LV V1 max P.2 mmHg Ao V2 mean: 114.4 cm/sec Ao mean P.8 mmHg Ao V2 VTI: 34.2 cm TR max curtis: 325.9 cm/sec TR max P.5 mmHg Interpretation Summary The study was technically difficult. Left ventricular systolic function is normal. The estimated ejection fraction is 60 %. Mild (1+) mitral valve insufficiency. Mild to moderate (1-2+) tricuspid valve insufficiency. Mild focal aortic valve thickening. Mild (1+) pulmonic valve insufficiency. Trivial pericardial effusion. There are no echocardiographic indications of cardiac tamponade. Right ventricular systolic pressure estimated to be 58 mmHg c/w pulmonary hypertension. Diastolic function is indeterminate. Ordering Physician: Tank Fernandes Referring Physician: Elpidio Coughlin Performed By: Sandhya Guadalupe, RDSAHRA, RVT 09/14/18 1411 Date Tank Fernandes MD CC: DANAE Coughlin; Elpidio Coughlin; Alex Bauman MD; Tank Fernandes MD Date Dictated: 09/14/18 1110 Date Transcribed: 09/14/18 1411 Senior Developer: Signed CONSULTATION Observed: 09/14/2018 Status: F Source: BILLY 10:17 AM [facility] REPOSITORY [facility] Medical Records Department [address] [place] [address] Consultation 09/14/18 0848 MR#: [id number] Acct: [id number] Name: YAEL SAVAGE Rep #: [id number] : 1955 63 From: Tank Fernandes MD PCP: Elpidio Coughlin Status: ADM IN Y Location: [place] [address] Problem List (1) SVT (supraventricular tachycardia) Status: Acute (2) Abnormal cardiac enzyme level Status: Acute (3) COPD (chronic obstructive pulmonary disease) Status: Acute Qualifiers: COPD type: COPD with acute exacerbation Qualified Code(s): J44.1 - Chronic obstructive pulmonary disease with (acute) exacerbation (4) Schizophrenia Status: Chronic (5) Obesity Status: Chronic Reason for Consult Date of Consultation: 09/14/18 History of Present Illness: The patient is a 63 year old white female with a past medical history which is apparently included COPD and schizophrenia who is being evaluated for COPD exacerbation and is subsequently been referred for further evaluation of PSVT requiring medical management with IV adenosine. The patient does not recall any cardiovascular history nor undergoing cardiovascular evaluation in the past. She states that she has been complaining of shortness of breath and a nonproductive cough. She is being evaluated for an underlying COPD exacerbation. She has been treated medically including IV corticosteroids. During her initial evaluation she did have an indeterminate troponin I level which decreased. She had no acute ECG changes reported. According to the medical records it was felt this was secondary to her COPD exacerbation. She did not have additional cardiovascular evaluation. Yesterday evening she noted palpitations. She was found to have an underlying supraventricular tachycardia. She was treated with IV adenosine 6 mg x1 with no response. She was treated with IV adenosine 12 mg x1 with subsequent conversion to sinus rhythm. She did have a follow-up ECG. At that time she was noted to be back in sinus rhythm with a borderline short MN interval with a rightward axis and an incomplete right bundle branch block pattern. Compared to her baseline ECG there appeared to be similar type changes. She has denied chest discomfort. She complains of her chronic shortness of breath and dyspnea. She complains of her chronic cough. She is denied any ongoing near syncope or syncope. She states she has been a 3 pack/day smoker for many years. She states she stopped smoking 1 week ago. [] Past Medical History Allergies/Adverse Reactions: Allergies No Known Allergies Allergy (Verified 09/12/18 20:23) Home Medications: Ambulatory Orders Medication Instructions Recorded Atorvastatin Calcium [Lipitor] 10 mg PO DAILY 09/12/18 Haloperidol 2 mg PO BID 09/12/18 Past Medical History (Chronic Problems): Chronic Problems Schizophrenia (Chronic) Smoker (Chronic) Obesity (Chronic) - *Family History Maternal History Items: No pertinent history Smoking Status: Current every day smoker Alcohol: None Drugs: None Review of Systems - Review of Systems General: Reports: Fever Cardiovascular: Reports: Shortness of Breath, Palpitations. Denies: Chest Discomfort, Orthopnea, PND, Peripheral Edema, Lightheadedness, Dizziness, Near Syncope, Syncope Respiratory: Reports: Non Productive Cough, Shortness of Breath. Denies: Cough, Sputum Production, Hemoptysis Gastrointestinal: Denies: Hematemesis, Hematochezia, Melena Genitourinary: Denies: Dysuria, Hematuria Skin: Denies: Rash Subjectve: This is a 63-year-old white female who appears to be resting comfortably at the moment in no acute distress. Objective: Vital Signs Temp Pulse Resp BP Pulse Ox 97.8 F 83 20 H 141/78 H 95 09/14/18 03:25 09/14/18 07:27 09/14/18 07:27 09/14/18 03:25 09/14/18 07:27 Oxygen Flow Rate (L/min) 2 Oxygen Delivery Method Nasal Cannula Weight: 203 lb 14.841 oz Body Mass Index (BMI) 37.3 Intake and Output for Last 24 Hours Intake Total 1890 240 / 240 Balance 1890 240 / 240 General: Awake, Alert, Oriented x 3, Cooperative, No Acute Distress HEENT: Atraumatic, Normocephalic, PERRL, EOMI, Sclera Non Icteric Oral: Moist Mucosa Neck: Supple, Good ROM, No JVD Lungs: Rhonchi Cardiovascular: Regular Rhythm, Normal S1, Normal S2 Vascular: No Carotid Bruits Abdomen: Bowel Sounds Present, Soft, Non Tender, Obese Extremities: No Cyanosis, No Clubbing, No edema 09/14/18 06:35: WBC 15.9 H, RBC 4.90, Hgb 15.7 H, Hct 46.8, MCV 95.5, MCH 32.0, MCHC 33.5, RDW 15.8 H, RDW Differential 54.2 H, Plt Count 290, MPV 10.9 09/14/18 06:35: Sodium 134 L, Potassium 4.1, Chloride 98, Carbon Dioxide 30.0, Anion Gap 6, BUN 15, Creatinine 0.84, Est GFR (MDRD) Af Amer 89, Est GFR (MDRD) Non-Af 73, BUN/Creatinine Ratio 18.0, Glucose 135 H, Calcium 8.8 Rhythm: Sinus rhythm EKG: As noted above ECHO: Pending CXR: Preliminary evaluation: No acute cardiopulmonary disease process: Please see official report Assessment/Plan 1. Supraventricular tachycardia The patient has demonstrated evidence of an underlying paroxysmal supraventricular tachycardia. Based upon the findings and her response to IV adenosine therapy it appears this is related to an underlying reentry mechanism tachycardia. This may be brought out by her underlying COPD exacerbation, etc. It is unclear whether she has had episodes of this in the past that have been undiagnosed. At the present time she will continue to be monitored. She will undergo further evaluation of her cardiac anatomy with a transthoracic echocardiogram. In the interim she will be placed on medical management with beta-aarti therapy. Hopefully this will not interfere with her underlying COPD process. Over time she may need to be considered for EP consultation for possible EPS/RFA. 2. Abnormal cardiac enzymes The patient does have a history of indeterminate troponin I levels. Again this may be secondary to her underlying COPD process and supply demand mismatch. However she has not been evaluated from a cardiovascular status for any other cardiac issues. In light of her SVT she will have at minimum an echocardiogram performed to evaluate her left ventricular wall motion and systolic function. She may eventually need, as her pulmonary process improves, further evaluation either noninvasively or invasively of her coronary anatomy and physiology. In the meantime she will continue medical management such as aspirin and beta-aarti therapy and other medications as needed. 3. COPD The patient will continue evaluation care for COPD exacerbation by internal medicine. 4. Schizophrenia The patient states she has been diagnosed with schizophrenia. She does not recall who has cared for or how she has been treated. 5. Obesity The patient has been counseled on the importance of dietary therapy, activity, etc. to try and bring her weight under better control. Comment: The above was discussed with the patient. This note was generated using a voice recognition system and there may be incorrect words, spelling or punctuation that were not noted when reviewing the office note prior to saving. 09/14/18 1017 <Electronically signed by Tank Fernandes MD> Date Tank Fernandes MD Cosigner Signature (if applicable): Date CC: DANAE Coughlin; Elpidio Coughlin; Tank Fernandes MD Signed CBC-COMPLETE BLOOD CNT Collected: 09/14/2018 Status: F Source: BILLY NO DIFF 6:35 AM [facility] REPOSITORY TYPE CODE TESTS RESULT OUT OF RANGE REFERENCE UNITS LAB L100.1000 4.4-11.0 K/mm3 High WBC 15.9 LAB L100.1200 4.2-5.4 M/mm3 Normal RBC 4.90 LAB L100.1300 12.0-15.0 g/dl High HGB 15.7 LAB L100.1400 37-47 % Normal HCT 46.8 LAB L100.1500 81-99 fL Normal MCV 95.5 LAB L100.1600 27.0-32.0 pg Normal MCH 32.0 LAB L100.1700 32-36 g/gl Normal MCHC 33.5 LAB L100.1810 11.6-14.6 % High RDW CV 15.8 LAB L100.1820 35.1-43.9 fl High RDW SD 54.2 LAB L100.1900 150-450 K/mm3 Normal PLT 290 LAB L100.2000 6.2-12.0 fl Normal MPV 10.9 Performed By: #### L100.0500 #### [facility] [place], [address] BASIC METABOLIC Collected: 09/14/2018 Status: F Source: BILLY PROFILE (BMP) 6:35 AM [facility] REPOSITORY TYPE CODE TESTS RESULT OUT OF RANGE REFERENCE UNITS LAB L501.0100 74-106 mg/dL High GLU 135 Result Comment: Fasting Glucose result greater than or equal to 126 mg/dL suggests DIABETES MELLITUS per A.D.A. criteria. Please note revised GLUCOSE reference range effective 2017. LAB L501.1000 7-18 mg/dL Normal BUN 15 LAB L501.1100 0.55-1.02 mg/dL Normal CREAT,SERUM 0.84 Result Comment: The validity of the calculated GFR AND GFRAA in patients over 70 years has not been determined. Clinical correlation is essential. LAB L501.1110 >60 mL/min Normal EST GFR 73 Result Comment: Non- GFR Calc LAB L501.1115 >60 mL/min Normal EST GFR - AA 89 Result Comment: GFR Calc LAB L501.1255 ml/min Normal Estimated CRCL 54.22 LAB L501.1300 10-20 RATIO Normal BUN/CRE 18.0 LAB L501.2200 8.5-10 mg/dL Normal .1 CA 8.8 LAB L501.5300 136-14 mmol/L Low 5 NA 134 LAB L501.5600 3.5-5. mmol/L Normal 1 K 4.1 LAB L501.5900 98-107 mmol/L Normal CL 98 LAB L501.6100 21.0-3 mmol/L Normal 2.0 CO2 30.0 LAB L501.6200 5-15 Normal GAP 6 Performed By: #### L500.2500 #### [facility] [address] [facility] [address] [place], [place], [address] LIPID PROFILE Collected: 09/14/2018 Status: F Source: JOHNSON 6:35 AM [facility] REPOSITORY Order Comment: Comments: Add to AM labs TYPE CODE TESTS RESULT OUT OF RANGE REFERENCE UNITS LAB L501.4900 200 mg/dL Normal CHOL 144 Result Comment: <200 mg/dL Desirable 200-240 mg/dL Borderline >240 mg/dL High Risk LAB L501.5000 mg/dL Normal TRIG 135 Result Comment: The drugs N-Acetylcysteine and Metamizole may falsely depress this assay. Serum Triglycerides Reference Interval Normal <150 mg/dL Borderline high 150 - 199 mg/dL High 200 - 499 mg/dL Very High > or = 500 mg/dL LAB L501.6400 mg/dL Low HDL 35 Result Comment: The drugs N-Acetylcysteine and Metamizole may falsely depress this assay. Reference Range HDL <40 mg/dL Low HDL Cholesterol HDL >or= 60 mg/dL High HDL Cholesterol LAB L501.6500 0-130 mg/dL Normal LDL 82 LAB L501.6600 5-40 mg/dL Normal VLDL 27 Performed By: #### L500.4100 #### [facility] [address] [facility]. [place], [place], [address] CBC W/DIFF, AUTOMATED Collected: 09/13/2018 Status: F Source: JOHNSON 6:00 AM [facility] REPOSITORY TYPE CODE TESTS RESULT OUT OF RANGE REFERENCE UNITS LAB L100.1000 4.4-11.0 K/mm3 High WBC 15.4 LAB L100.1200 4.2-5.4 M/mm3 Normal RBC 4.82 LAB L100.1300 12.0-15.0 g/dl High HGB 15.2 LAB L100.1400 37-47 % Normal HCT 46.9 LAB L100.1500 81-99 fL Normal MCV 97.3 LAB L100.1600 27.0-32.0 pg Normal MCH 31.5 LAB L100.1700 32-36 g/gl Normal MCHC 32.4 LAB L100.1810 11.6-14.6 % High RDW CV 15.9 LAB L100.1820 35.1-43.9 fl High RDW SD 55.8 LAB L100.1900 150-450 K/mm3 Normal PLT 268 LAB L100.2000 6.2-12.0 fl Normal MPV 10.5 LAB L100.2100 47-70 % High NEUT% 92.5 LAB L100.2200 19-41 % Low LY% 4.2 LAB L100.2300 0-10 % Normal MONO% 2.9 LAB L100.2400 0-5 % Normal EO% 0.0 LAB L100.2500 0-1 % Normal BASO% 0.1 LAB L100.2550 0.0-0.9 % Normal IM GRAN % 0.300 Result Comment: IG% - Immature Granulocytes (promyelocytes, myelocytes and metamyelocytes) > 1% indicates that a LEFT SHIFT is Present. LAB L100.2620 2.0-7.7 X10 3/uL High Absolute Neut 14.2 LAB L100.2720 0.83-4.51 X10 3/ul Low Absolute Lymph 0.64 Performed By: #### L100.0100 #### [facility] [address] [place], [place], [address] BASIC METABOLIC Collected: 09/13/2018 Status: F Source: J[place]ON PROFILE ([facility]) 6:00 AM [facility] REPOSITORY TYPE CODE TESTS RESULT OUT OF RANGE REFERENCE UNITS LAB L501.0100 74-106 mg/dL High GLU 131 Result Comment: Fasting Glucose result greater than or equal to 126 mg/dL suggests DIABETES MELLITUS per A.D.A. criteria. Please note revised GLUCOSE reference range effective 2017. LAB L501.1000 7-18 mg/dL Normal BUN 12 LAB L501.1100 0.55-1.02 mg/dL Normal CREAT,SERUM 0.64 Result Comment: The validity of the calculated GFR AND GFRAA in patients over 70 years has not been determined. Clinical correlation is essential. LAB L501.1110 >60 mL/min Normal EST GFR 100 Result Comment: Non- GFR Calc LAB L501.1115 >60 mL/min Normal EST GFR - AA 121 Result Comment: GFR Calc LAB L501.1255 ml/min Normal Estimated CRCL 71.16 LAB L501.1300 10-20 RATIO Normal BUN/CRE 18.9 LAB L501.2200 8.5-10 mg/dL Normal .1 CA 8.5 LAB L501.5300 136-14 mmol/L Normal 5 NA 136 LAB L501.5600 3.5-5. mmol/L Normal 1 K 4.1 LAB L501.5900 98-107 mmol/L Normal CL 99 LAB L501.6100 21.0-3 mmol/L Normal 2.0 CO2 31.0 LAB L501.6200 5-15 Normal GAP 6 Performed By: #### L500.2500 #### [facility] [address] [facility] [place], [place], [address] TROPONIN-I Collected: 09/13/2018 Status: F Source: J[place]ON 6:00 AM [facility] REPOSITORY Order Comment: 'TROP' Serial specimen #1, #2 or #3: 3 TYPE CODE TESTS RESULT OUT OF RANGE REFERENCE UNITS LAB L501.4010 <0.045 ng/mL Normal 0.024 TROPONIN-I Result Comment: TROPONIN-I EXPECTED VALUES <0.045 Negative 0.045 - 0.590 Consistent with Cardiac Damage > OR = 0.600 Critical Value Not every elevated troponin is indicative of TN. These values should be used with clinical judgement in examining the patient's clinical picture for diagnosis. To establish a diagnosis of TN versus myocardial injury, there must be a demonstrated rise and/or fall in the troponin values, in addition to ischemic symptoms, EKG changes, new regional wall motion abnormality, and/or angiographical evidence. PLEASE NOTE: REFERENCE RANGES EDITED 18 Performed By: #### L501.4010 #### [facility] [address] [facility] [place], [address] TROPONIN-I Collected: 09/12/2018 Status: F Source: JOHNSON 9:22 PM [facility] REPOSITORY Order Comment: 'TROP' Serial specimen #1, #2 or #3: 2 TYPE CODE TESTS RESULT OUT OF RANGE REFERENCE UNITS LAB L501.4010 <0.045 ng/mL Normal 0.044 TROPONIN-I Result Comment: TROPONIN-I EXPECTED VALUES <0.045 Negative 0.045 - 0.590 Consistent with Cardiac Damage > OR = 0.600 Critical Value Not every elevated troponin is indicative of TN. These values should be used with clinical judgement in examining the patient's clinical picture for diagnosis. To establish a diagnosis of TN versus myocardial injury, there must be a demonstrated rise and/or fall in the troponin values, in addition to ischemic symptoms, EKG changes, new regional wall motion abnormality, and/or angiographical evidence. PLEASE NOTE: REFERENCE RANGES EDITED 18 Performed By: #### L501.4010 #### [facility] [address] [place], [address] EMERGENCY DEPARTMENT Observed: 09/12/2018 Status: F Source: BILLY SUMMARY 8:30 PM [facility] REPOSITORY [facility] Medical Records Department [address] [place] [address] Emergency Department Summary 09/12/18 1627 MR#: [id number] Acct: [id number] Name: YAEL SAVAGE Rep #: [id number] : 1955 63 From: Mono Rojas MD PCP: Elpidio Coughlin Status: ADM IN - ER Visit Summary Date of Service: 09/12/18 Chief Complaint: Fall, hypoxia History of Present Illness: The patient is a 63 F presents to the emergency department by squad after a fall. Patient states that she was outside. She thinks that she is going to get her mail. She tripped in wet grass and fell. She states that she was outside for about 15 minutes. She does not think that she lost consciousness. She did not strike her head. She does admit that she is been mildly short of breath for the past few days. She had scant cough. She denies any fevers or chills. She denies any history of lung disease. The patient does have a history of schizophrenia and is on long-acting injectable Haldol. She denies any hallucinations or delusions. She has never been on oxygen before. On squad arrival, she was 84% on room air. Physical Examination: Vital signs reviewed General: Well-nourished, well-developed Head: Normocephalic, atraumatic Eyes: Pupils equal and reactive, extraocular muscles intact Neck, supple, no lymphadenopathy Heart: Regular rate and rhythm Respiratory: No distress, diminished air movement in all lung estrada Abdomen: Soft, nontender, nondistended, no peritoneal signs Back: Nontender Extremities: Nontender, no edema, no cords Skin: Normal color no rash Neuro: Alert and oriented, no focal or lateralizing deficits Test Results: [] Emergency Department Course and Treatment: The patient presents with hypoxia. Her fall did seem to be mechanical, but the patient has a significant oxygen requirement. Metabolic workup was pursued. Her EKG did not show acute ischemia. Her chest x-ray was unremarkable. The patient continued to require 4 L of supplemental oxygen. She was given steroids and breathing treatments. She had improvement of aeration but continued to have oxygen dependence. At this time, I do feel that she can require admission for COPD exacerbation. She does have an indeterminate troponin, but I do feel that this is more likely from global hypoxia rather than acute coronary syndrome. Patient was discussed with the hospitalist and will be admitted. Treatment Plan: [] Disposition: Admission Impression: 1. COPD exacerbation 2. Hypoxia This note was generated with [employer] dictation software. It may contain incorrect words, spelling, and punctuation that were not noted in review of the chart prior to signing ED Disposition - Plan for ED Patient: Chief Complaint: Fall What to do if you have Problems For any increased pain, shortness of breath, bleeding, nausea or vomiting, chest pain, or any unexpected problems, contact your Primary Care Provider. Call [email or web address] ([phone]) or report to the closest Emergency Room. Call 911 if necessary. 09/12/182029 <Electronically signed by Mono Rojas MD> Date Mono Rojas MD Cosigner Signature (If Indicated): Date CC: DANAE Coughlin; Elpidio Ced HISTORY AND PHYSICAL Observed: 09/12/2018 Status: F Source: JOHNSON EXAM 7:14 PM [facility] REPOSITORY [facility] Medical Records Department [address] [place] [address] History and Physical 09/12/18 1906 MR#: [id number] Acct: [id number] Name: YAEL SAVAGE Rep #: [id number] : 1955 63 From: Tank Gil MD PCP: Elpidio Coughlin Status: ADM IN Location: [place] [address] Problem List (1) Schizophrenia Status: Chronic (2) Smoker Status: Chronic (3) COPD (chronic obstructive pulmonary disease) Status: Acute Qualifiers: COPD type: COPD with acute exacerbation Qualified Code(s): J44.1 - Chronic obstructive pulmonary disease with (acute) exacerbation (4) Obesity Status: Chronic History of Present Illness Date of Admission: 09/12/18 Chief Complaint: shortness of breath The patient is a 63 year old female with a significant past medical history of Schizophrenia and COPD who smokes 3PPD for many years presents to the ER with shortness of breath. This has been progressing for the past 3 days but became worse today. She called the squad after a fall at home. She denies loss of consciousness but thinks she slipped on wet grass outside. She denies trauma or head injury. Her schizophrenia is controlled with monthly injections of Haldol. She is not on home oxygen. Her initial pulse oxygen saturation was 84% on room air. She will be admitted for COPD exacerbation Past Medical History Past Medical History (Chronic Problems): Chronic Problems Schizophrenia (Chronic) Smoker (Chronic) Obesity (Chronic) Allergies No Known Allergies Allergy (Verified 09/12/18 18:01) Smoking Status: Current every day smoker - *Family History Maternal History Items: No pertinent history Review of Systems Constitutional: Denies: Chills, Fever, Weight Change HEENT: Denies: Head Aches, Sinus Congestion, Sinus Drainage Cardiovascular: Denies: Chest Pain, Palpitations Respiratory: Reports: Cough, Shortness of breath at rest, Shortness of breath upon exertion, Wheezing. Denies: Sputum production Gastrointestinal: Denies: Abdominal Pain, Nausea, Vomiting Genitourinary: Denies: Dysuria Musculoskeletal: Denies: Joint Pain, Joint Tenderness Skin: Denies: Rash, Wounds Neurological: Denies: Numbness, Tingling, Focal weakness Psychiatric: Denies: Anxiety, Depression, Homicidal Ideations, Suicidal Ideations Hematologic/ Lymphatic: Denies: Easy Bruising, Easy Bleeding VTE Information - Inpt Only VTE Present on Admission: No VTE Mechan Device Prophylaxis: None VTE Pharm Prophylaxis ordered?: Yes Patient Problems: Active and Suspected Problems COPD (chronic obstructive pulmonary disease) (Acute) - Physical Exam General: Alert, Oriented x3, Cooperative HEENT: Atraumatic, Normocephalic Neck: Supple Lungs: Diminished, Short of Breath, Wheezes Cardiovascular: Regular rate, Normal S1, Normal S2, No murmurs Abdomen: Bowel Sounds Present, Soft, Non Tender, Obese Extremities: No edema Skin: No rashes Musculoskeletal: No Tenderness to Palpation of Joints or Extremities Neurological: Neuro grossly intact Psych/Mental Status: Normal Affect, Appropriate Vital Signs Temp Pulse Resp BP Pulse Ox 97.8 F 94 18 160/104 H 93 09/12/18 16:20 09/12/18 16:26 09/12/18 16:26 09/12/18 16:26 09/12/18 16:26 Oxygen Flow Rate (L/min) 4 Oxygen Delivery Method Nasal Cannula Weight: 215 lb Body Mass Index (BMI) 30.8 Laboratory Tests Past 24 Hrs Assessment/Plan All Active Problems COPD (chronic obstructive pulmonary disease) (Acute) Chronic Problems Schizophrenia (Chronic) Smoker (Chronic) Obesity (Chronic) Plan - admit to PCU - solumedrol 40mg IV q8hrs - levaquin 500mg IV q day - duoneb INH q 4hrs - cycle cardiac markers and cont telemetry due to elevated troponin - LMWH for DVT prophylaxis - nicoderm patch - continue routine home medications Code Visit Inpatient E AND M: 22371 Init Hosp L3 09/12/181913 <Electronically signed by Tank Gil MD> Date Tank Gil MD Cosigner Signature: Date (if applicable) CC: DANAE Coughlin; Elpidio Coughlin; Tank Gil MD Signed CBC W/DIFF, AUTOMATED Collected: 09/12/2018 Status: F Source: BILLY 5:30 PM [facility] REPOSITORY TYPE CODE TESTS RESULT OUT OF RANGE REFERENCE UNITS LAB L100.1000 4.4-11.0 K/mm3 High WBC 16.3 LAB L100.1200 4.2-5.4 M/mm3 Normal RBC 4.98 LAB L100.1300 12.0-15.0 g/dl High HGB 15.8 LAB L100.1400 37-47 % High HCT 48.7 LAB L100.1500 81-99 fL Normal MCV 97.8 LAB L100.1600 27.0-32.0 pg Normal MCH 31.7 LAB L100.1700 32-36 g/gl Normal MCHC 32.4 LAB L100.1810 11.6-14.6 % High RDW CV 16.3 LAB L100.1820 35.1-43.9 fl High RDW SD 57.8 LAB L100.1900 150-450 K/mm3 Normal PLT 290 LAB L100.2000 6.2-12.0 fl Normal MPV 9.7 LAB L100.2100 47-70 % High NEUT% 80.6 LAB L100.2200 19-41 % Low LY% 11.5 LAB L100.2300 0-10 % Normal MONO% 7.1 LAB L100.2400 0-5 % Normal EO% 0.3 LAB L100.2500 0-1 % Normal BASO% 0.1 LAB L100.2550 0.0-0.9 % Normal IM GRAN % 0.400 Result Comment: IG% - Immature Granulocytes (promyelocytes, myelocytes and metamyelocytes) > 1% indicates that a LEFT SHIFT is Present. LAB L100.2620 2.0-7.7 X10 3/uL High Absolute Neut 13.1 LAB L100.2720 0.83-4.51 X10 3/ul Normal Absolute Lymph 1.87 Performed By: #### L100.0100 #### [facility] [address] [place], [address] COMPREHENSIVE METABOLIC Collected: 09/12/2018 Status: F Source: BILLY PROFIL 5:30 PM [facility] REPOSITORY TYPE CODE TESTS RESULT OUT OF RANGE REFERENCE UNITS LAB L501.0100 74-106 mg/dL Normal GLU 104 Result Comment: Fasting Glucose result from 100 to 125 mg/dL suggests IMPAIRED HOMEOSTASIS per A.D.A. criteria. Please note revised GLUCOSE reference range effective 2017. LAB L501.1000 7-18 mg/dL Normal BUN 13 LAB L501.1100 0.55-1.02 mg/dL Normal CREAT,SERUM 0.82 Result Comment: The validity of the calculated GFR AND GFRAA in patients over 70 years has not been determined. Clinical correlation is essential. LAB L501.1110 >60 mL/min Normal EST GFR 75 Result Comment: Non- GFR Calc LAB L501.1115 >60 mL/min Normal EST GFR - AA 91 Result Comment: GFR Calc LAB L501.1255 ml/min Normal Estimated CRCL 75.94 LAB L501.1300 10-20 RATIO Normal BUN/CRE 15.9 LAB L501.1500 6.4-8. g/dL Normal 2 T PROT 7.1 LAB L501.1800 3.2-5. g/dL Low 0 ALB 3.1 LAB L501.1950 2.2-4. g/dL Normal 2 GLOB 4.0 LAB L501.2000 0.9-2. RATIO Low 4 A/G 0.8 LAB L501.2200 8.5-10 mg/dL Low .1 CA 8.4 LAB L501.4100 15-37 U/L Low AST 13 LAB L501.4305 45-117 U/L Normal ALK P 81 LAB L501.4405 13-56 U/L Normal ALT 16 LAB L501.4600 0.20-1 mg/dL Normal .00 T BILI 0.50 LAB L501.5300 136-14 mmol/L Low 5 NA 134 LAB L501.5600 3.5-5. mmol/L Normal 1 K 3.9 LAB L501.5900 98-107 mmol/L Low CL 95 LAB L501.6100 21.0-3 mmol/L High 2.0 CO2 36.0 LAB L501.6200 5-15 Low GAP 3 Performed By: #### L500.4050, L501.4010 #### [facility] [address] [place], [address] TROPONIN-I Collected: 09/12/2018 Status: F Source: BILLY 5:30 PM [facility] REPOSITORY TYPE CODE TESTS RESULT OUT OF RANGE REFERENCE UNITS LAB L501.4010 <0.045 ng/mL High 0.067 TROPONIN-I Result Comment: TROPONIN-I EXPECTED VALUES <0.045 Negative 0.045 - 0.590 Consistent with Cardiac Damage > OR = 0.600 Critical Value Not every elevated troponin is indicative of TN. These values should be used with clinical judgement in examining the patient's clinical picture for diagnosis. To establish a diagnosis of TN versus myocardial injury, there must be a demonstrated rise and/or fall in the troponin values, in addition to ischemic symptoms, EKG changes, new regional wall motion abnormality, and/or angiographical evidence. PLEASE NOTE: REFERENCE RANGES EDITED 18 Performed By: #### L500.4050, L501.4010 #### [facility] [address] [place], [address] BNP,B-TYPE NATRIURETIC Collected: 09/12/2018 Status: F Source: JOHNSON PEPTIDE 5:30 PM [facility] REPOSITORY TYPE CODE TESTS RESULT OUT OF RANGE REFERENCE UNITS LAB L503.6620 0-100 pg/mL High B-TYPE 325.8 RENATO PEP Performed By: #### L503.6620 #### [facility] [address] [facility] [place], [address] CHEST 1 VIEW Observed: 09/12/2018 Status: F Source: BILLY (PORTABLE) 4:26 PM [facility] REPOSITORY [facility] Imaging Services [address] [place] [id number] Chest 1 View (Portable) MR#: [id number] Acct: [id number] Name: YAEL SAVAGE Rep #: [id number] : 1955 F 63 From: Jennifer Merrill MD PCP: Elpidio Coughlin Status: REG ER Study: Chest 1 View (Portable) Date of Exam: 09/12/18 Exam# [id number] Ordering Dr: Mono Rojas MD STUDY: X-RAY CHEST REASON FOR EXAM: Female, 63 years old. Cough TECHNIQUE: Single AP portable view of the chest. COMPARISON: None. FINDINGS: There are a few scattered areas of minimal interstitial prominence. There is no demonstrated pleural abnormality. There is borderline cardiomegaly. Normal mediastinum and trip. Normal visualized pulmonary arteries. Normal visualized aortic arch and descending thoracic aorta. Normal visualized thoracic spine. Normal visualized ribs, clavicles, and shoulders. There is no demonstrated abnormality of the visualized soft tissue structures of the upper abdomen. RAD/Chest 1 View (Portable) IMPRESSION: No visible focal consolidation. Electronically Signed: Jennifer Merrill MD at 17:14 EST Tel , Service support , CC: Elpidio Coughlin; Mono Rojas MD Senior Developer: Signed ALLERGIES ALLERGIES DATE TYPE / CODE NAME / CODE REACTION SEVERITY SOURCE 09/12/2018 Drug No Known Unknown [facility] Allergy/4160 Allergies/F00 [facility] [address]50(SNOMED [id number](RXNOR Repository CT) M) ENCOUNTERS ENCOUNTERS ADMIT/DISCHARGE ACCOUNT ADMITTING ENCOUNTER LOCATION SOURCE NUMBER CLASS 09/12/2018/ [id number] Ambulatory BMSBuilding:[place] 8 3 [facility] Repository 09/12/2018/ [id number] Ambulatory BMSBuilding:[place] 8 7 [facility] Repository 09/12/2018/ [id number] Tank Gil Inpatient [place] 8 7 Encounter [facility] ing:PCURoom: Repository [id number]: 1 09/12/2018 [id number] Tank Gil Ambulatory BMSBuilding:B [place] 0 [place].On license of [facility] Repository 09/12/2018 [id number] Tank Gil Ambulatory BMSBuilding:B [place] 4 [place].On license of [facility] Repository 09/12/2018 [id number] Tank Gil Ambulatory BMSBuilding:[facility] [place] 2 [place].[facility] Repository 09/12/2018 [id number] Tank Gil Ambulatory BMSBuilding:B [place] 8 [place].On license of [facility] Repository 09/12/2018 [id number] Tank Gil Ambulatory BMSBuilding:B [place] 8 [place].On license of [facility] Repository 09/12/2018 [id number] Tank Gil Ambulatory BMSBuilding:B [place].On license of [facility] Repository PAYERS PAYERS ENCOUNTER GUARANTOR PAYER SUBSCRIBER SOURCE 09/12/2018 YAEL A Primary YAEL A [place] [id number] E Insurance:CARESOURCEP LIKENSDOB: [facility] Number: [id number] [place], [place] [id number] Repository [address]Adp: (330) Date:2018-09-12 O [phone] () [address]ATTN: [place] [address]GI: 09/12/2018 Secondary NOT GIVENUNK [place] Insurance:SELF PAY [facility] Number: Effective Repository Date:2018-09-12 09/12/2018 YAEL A Primary YAEL A [place] [id number] E Insurance:CARESOURCEP LIKENSDOB: [facility] Number: [id number] [place], [place] [id number] Repository [address]Uew: (330) Date:2018-09-12P O [phone] () [address]ATTN: [place] [address]BC: 09/12/2018 Secondary NOT GIVENUNK [place] Insurance:SELF PAY [facility] Number: Effective Repository Date:2018-09-12 09/12/2018 YAEL A Primary YAEL A [place] [id number] E Insurance:CARESOURCEP LIKENSDOB: [facility] Number: [id number] [place], [place] [id number] Repository [address]Owr: (330) Date:2018-09-12P O [phone] (HP) [address]ATTN: [place] [address]CE: 09/12/2018 Secondary NOT GIVENUNK [place] Insurance:SELF PAY [facility] Number: Effective Repository Date:2018-09-12 09/12/2018 YAEL A Primary YAEL A [place] [id number] E Insurance:CARESOURCEP LIKENSDOB: [facility] Number: [id number] [place], [place] [id number] Repository [address]Bwc: (330) Date:2018-09-12P O [phone] (HP) [address]ATTN: [place] [address]IW: 09/12/2018 Secondary NOT GIVENUNK [place] Insurance:SELF PAY [facility] Number: Effective Repository Date:2018-09-12 09/12/2018 YAEL A Primary YAEL A [place] [id number] E Insurance:CARESOURCEP LIKENSDOB: [facility] Number: [id number] [place], [place] [id number] Repository [address]Trp: ([phone]) Date:2018-09-12 O [phone] (HP) [address]ATTN: [place] [address]QG: 09/12/2018 Secondary NOT GIVENUNK [place] Insurance:SELF PAY [facility] Number: Effective Repository Date:2018-09-12 09/12/2018 YAEL A Primary YAEL A [place] [id number] E Insurance:CARESOURCEP LIKENSDOB: [facility] Number: [id number] [place], [place] [id number] Repository [address]Tyx: (330) Date:2018-09-12P O [phone] (HP) [address]ATTN: [place] [address]UA: 09/12/2018 Secondary NOT GIVENUNK [place] Insurance:SELF PAY [facility] Number: Effective Repository Date:2018-09-12 09/12/2018 YAEL A Primary YAEL A [place] [id number] E Insurance:CARESOURCEP LIKENSDOB: [facility] Number: [id number] [place], [place] [id number] Repository [address]Sqr: ([phone]) Date:2018-09-12P O [phone] (HP) [address]ATTN: [place] [address]UJ: 09/12/2018 Secondary NOT GIVENUNK [place] Insurance:SELF PAY [facility] Number: Effective Repository Date:2018-09-12 09/12/2018 YAEL A Primary YAEL A [place] [id number] E Insurance:CARESOURCEP LIKENSDOB: [facility] Number: [id number] [place], [place] [id number] Repository [address]Wun: (330) Date:2018-09-12P O [phone] (HP) [address]ATTN: [place] [address]SA: 09/12/2018 Secondary NOT GIVENUNK [place] Insurance:SELF PAY [facility] Number: Effective Repository Date:2018-09-12 09/12/2018 YAEL A Primary YAEL A [place] [id number] E Insurance:CARESOURCEP LIKENSDOB: [facility] Number: [id number] [place], [place] [id number] Repository [address]Xzr: (330) Date:2018-09-12P O [phone] (HP) [address]ATTN: [place] [address]RB: 09/12/2018 Secondary NOT GIVENUNK [place] Insurance:SELF PAY [facility] Number: Effective Repository Date:2018-09-12
== END 2018-09-16 15:42 | disposition home or self-care (01) | DRG 140 ==
LOC: ED 17:50 → PCU 19:21
PROVIDERS: Internal Medicine Cardiovascular Disease; Nurse Practitioner Family; Admitting Provider Family Medicine; Emergency Provider Emergency Medicine; Family Provider Family Medicine; PCP Family Medicine; Visit Provider Family Medicine
DX: J44.1 Chronic obstructive pulmonary disease with (acute) exacerbation (principal); F20.9 Schizophrenia, unspecified; E66.9 Obesity, unspecified; Z68.37 Body mass index [BMI] 37.0-37.9, adult; E78.5 Hyperlipidemia, unspecified; F17.210 Nicotine dependence, cigarettes, uncomplicated; I47.1 Supraventricular tachycardia; R09.02 Hypoxemia; I27.20 Pulmonary hypertension, unspecified; W01.0XXA Fall on same level from slipping, tripping and stumbling without subsequent striking against object, initial encounter; Y92.017 Garden or yard in single-family (private) house as the place of occurrence of the external cause; R74.8 Abnormal levels of other serum enzymes
CPT/HCPCS: 36415; 71045; 78452; 80048; 80053; 80061; 83880; 84484; 85025; 85027; 85610; 85730; 93005; 93017; 93306; 94640; 97162; 97165; 97802; 99285; 99406; A9500; J7040; A4216; J0153; J2785